=== PATIENT | female | born 1990 | race Caucasian/White ===

== ENCOUNTER 2023-04-19 10:08 | Outpatient (OUT) | payer OTHER, SELFPAY ==
--- NOTE | 2023-04-19 10:09 | US_ITS ---
The [address] [address] Patient Name: PARMJIT CANCHOLA MRN: [id number] date: 1990 Sex: F Assigned Patient Location: [facility] Current Patient Location: LAB Accession/Order Number: [id number] Exam Date: 04/19/2023 10:10 Report Date: 04/19/2023 12:12 At the request of: ERIK GARAY Procedure: US OB transvaginal EXAMINATION: US OB transvaginal HISTORY: MISSED MENSES COMPARISON: No relevant comparison available. FINDINGS: GESTATIONAL SAC: Present and normal appearing. YOLK SAC: Present and normal appearing. POLE: Present and normal appearing. CARDIAC: Present. UTERUS: Normal size and appearance. OVARIES: Right: Normal. Left: Not seen. CERVIX: 4.5 cm in length and closed. CUL-DE-SAC: Normal. OTHER: Increased vascularity within right adnexa and superior to the uterus; nonspecific. AGE BY LMP: 13 weeks 5 days TAMI BY LMP: 10/20/2023 AGE BY US CRL: 11 weeks 0 days TAMI BY US CRL: 11/08/2023 US/US OB transvaginal IMPRESSION: 1. Single live intrauterine . Electronically authenticated by: NIMCO BELLE Date: 04/19/2023 12:12
== END 2023-04-19 10:09 | disposition home or self-care (01) ==
LOC: NOMS 10:08
PROVIDERS: Visit Provider Obstetrics & Gynecology
DX: Z34.91 Encounter for supervision of normal pregnancy, unspecified, first trimester (principal); Z3A.13 13 weeks gestation of pregnancy
CPT/HCPCS: 76817

== ENCOUNTER 2023-04-19 11:20 | Outpatient (OUT) | payer OTHER, SELFPAY ==
[2023-04-19 12:09] LABS: Basophils Percent Auto 0.2 % (0.2-2.0); Eosinophils Percent Auto 0.3 % (0.9-7.0); Hematocrit 40.5 % (36.0-48.0); Hemoglobin 13.4 g/dL (12.0-16.0); Immature Granulocytes Abs Auto 0.04 10^3/uL (0.00-0.03); Immature Granulocytes Pct Auto 0.4 % (0.0-0.5); Lymphocytes Absolute Auto 1.6 10^3/uL (1.2-3.8); Lymphocytes Percent Auto 14.6 % (20.5-60.0); Mean Corpuscular HGB Conc 33.1 g/dL (29.9-35.2); Mean Corpuscular Hemoglobin 29.5 pg (26.7-34.0); Mean Platelet Volume 9.3 fL (9.5-13.5); Monocytes Absolute Auto 0.6 10^3/uL (0.3-0.8); Monocytes Percent Auto 5.4 % (1.7-12.0); Neutrophils Absolute Auto 8.4 10^3/uL (1.4-6.5); Neutrophils Percent Auto 79.1 % (43.0-75.0); Platelet Count 328 10^3/uL (150-450); Red Blood Count 4.55 10^6/uL (4.20-5.40); Red Cell Distribution Width 14.5 % (11.0-15.0); White Blood Count 10.6 10^3/uL (4.0-11.0)
[2023-04-19 12:52] LABS: Estimated Average Glucose 103 mg/dL; Glycohemoglobin A1C 5.2 % (4.5-6.2)
[2023-04-20 04:10] LABS: Rubella Antibodies, IgG <0.90 index (Immune >0.99)
[2023-04-20 06:09] LABS: HBsAg Screen Negative (Negative); HCV Ab Non Reactive (Non Reactive); HIV Ab/p24 Ag Screen Non Reactive (Non Reactive)
[2023-04-20 11:18] LABS: Rapid Plasma Reagin, Quant Non Reactive titer (NonRea<1:1)
== END 2023-04-19 11:21 | disposition home or self-care (01) ==
LOC: LAB 11:23
PROVIDERS: Visit Provider Obstetrics & Gynecology
DX: Z34.91 Encounter for supervision of normal pregnancy, unspecified, first trimester (principal); Z3A.13 13 weeks gestation of pregnancy
CPT/HCPCS: 36415; 76817; 83036; 85025; 86592; 86762; 86803; 86850; 86900; 86901; 87086; 87340; 87389

== ENCOUNTER 2023-05-06 11:35 | Outpatient (OUT) | payer OTHER, SELFPAY ==
--- OUTSIDE RECORDS SUMMARY | 2023-05-06 11:44 | XMS_ITS | CCD ---
Author Name Unknown Address [facility] [address] [place] [address] Organization [facility] Care Team Providers Care Title Abstractor Name Role Phone TANISHA EIRK Unavailable Unavailable TANISHA ERIK Unavailable Unavailable JENNA ANDERSON Unavailable Unavailable CLAYTON DAVID V Unavailable Unavailable JAMIE JAIN Unavailable Unavailable ERIK GARAY Unavailable Unavailable JAMIE JAIN Unavailable Unavailable Problems Active Problems Problem Classification Problem Date Documented Da te Episodic/Chronic Other complications of ; puerperium affecting management of mother (1 source) Anemia complicating childbirth; Translations: [ANEMIA COMPLICATING CHILDBIRTH] Onset: 09-03-2016 Chronic Unclassified (1 source) 39 weeks gestation of ; Translations: [39 WEEKS GESTATION OF ] Onset: 09-03-2016 Past or Other Problems Problem Classification Problem Date Documented Da te Episodic/Chronic Normal and/or delivery (3 sources) Encounter for supervision of other normal , third trimester; Translations: [Single live ] Onset: 08-14-2016 Episodic Other complications of (1 source) Mild hyperemesis gravidarum; Translations: [MILD HYPEREMESIS GRAVIDARUM] Onset: 09-03-2016 Episodic Other connective tissue disease (1 source) Pain in right lower leg; Translations: [PAIN IN RIGHT LOWER LEG] Onset: 09-03-2016 Episodic Polyhydramnios and other problems of amniotic cavity (1 source) Full-term premature rupture of membranes, onset of labor within 24 hours of rupture; Translations: [FT PROM ONSET LABR W/I 24 HR RUPT] Onset: 09-03-2016 Episodic Encounters Encounter Date Encounter Type Care Provider Facility Start: 04-19-2023 End: 04-19-2023 ambulatory Not Available Start: 08-14-2016 End: 08-17-2016 Evaluation and management of inpatient ERIK Zaragoza acility:H1 Procedures Date Procedure Procedure Detail Performing Clinician Start: 08-15-2016 Delivery of Products of Conception, External Approach ERIK GARAY Start: 08-15-2016 Introduction of Othe r Therapeutic Substance into Female Reproductive, Via Natural or Artificial Opening ERIK GARAY Payers Date Payer Category Payer Unknown [id number] 1990 Unknown [id number] 2.16.84 [id number] 1957 Unknown [id number] Summary Purpose Family History No Family History Records FoundNo Family History Records Found Advance Directives No Advanced Directives Records FoundNo Advanced Directives Records Found Additional Source Comments INFORMATION SOURCE (unrecogn ized section and content) DATE CREATED AUTHOR 08/21/2017 [facility] DATE CREATED AUTHOR 'S TERRIIZ ATFARIDA 04/27/2023 [facility] dical Specialists EPIC FOR RECORDS PERTAINING TO PATIENTS WHO ARE OR HAVE BEEN ENROLLED IN A CHEMICAL DEPENDENCY/SUBSTANCEABUSE PROGRAM, SOME INFORMATION MAY BE OMITTED. This clinical summary was aggregated from multiple sources. Caution should be exercised in using it in the provision of clinical care. This summary normalizes information from multiple sources, and as a consequence, information in this document may materially change the coding, format and clinical context of patient data. In addition, data may be omitted in some cases. CLINICAL DECISIONS SHOULD BE BASED ON THE PRIMARY CLINICAL RECORDS. [employer] provides no warranty or guarantee of the accuracy or completeness of information in this document.
[2023-05-06 11:58] LABS: Basophils Percent Auto 0.3 % (0.2-2.0); Eosinophils Percent Auto 0.3 % (0.9-7.0); Hematocrit 41.5 % (36.0-48.0); Hemoglobin 13.8 g/dL (12.0-16.0); Immature Granulocytes Abs Auto 0.04 10^3/uL (0.00-0.03); Immature Granulocytes Pct Auto 0.4 % (0.0-0.5); Lymphocytes Absolute Auto 1.9 10^3/uL (1.2-3.8); Lymphocytes Percent Auto 17.2 % (20.5-60.0); Mean Corpuscular HGB Conc 33.3 g/dL (29.9-35.2); Mean Corpuscular Hemoglobin 29.9 pg (26.7-34.0); Mean Corpuscular Volume 89.8 fL (81.0-99.0); Mean Platelet Volume 9.2 fL (9.5-13.5); Monocytes Absolute Auto 0.8 10^3/uL (0.3-0.8); Monocytes Percent Auto 7.3 % (1.7-12.0); Neutrophils Absolute Auto 8.3 10^3/uL (1.4-6.5); Neutrophils Percent Auto 74.5 % (43.0-75.0); Platelet Count 328 10^3/uL (150-450); Red Blood Count 4.62 10^6/uL (4.20-5.40); Red Cell Distribution Width 14.6 % (11.0-15.0); White Blood Count 11.1 10^3/uL (4.0-11.0)
[2023-05-06 12:04] VITALS: BP 108/75; PULSE 71; RESP 16; TEMP 36.8; O2SAT 96
[2023-05-06 12:15] LABS: Alanine Aminotransferase 80 U/L (14-59); Albumin Globulin Ratio 0.6; Alkaline Phosphatase 75 U/L (46-116); Anion Gap 14.1; Aspartate Amino Transferase 35 U/L (15-37); BUN Creatinine Ratio 10.5; Bilirubin Total 0.5 mg/dL (0.2-1.0); Carbon Dioxide 23.7 mmol/L (21.0-32.0); Chloride 102 mmol/L (98-107); Estimated GFR (African America >60 (>=60); Estimated GFR (Non-African Ame >60 (>=60); Globulin 5.1 g/dL; Glucose 90 mg/dL (74-106); Potassium 3.8 mmol/L (3.5-5.1); Sodium 136 mmol/L (136-145); Total Protein 8.1 g/dL (6.4-8.2)
[2023-05-06 12:22] LABS: Bilirubin Direct 0.1 mg/dL (0.0-0.2); Thyroid Stimulating Hormone 1.364 uIU/mL (0.358-3.740)
[2023-05-06] MEDS: 0.9 % SODIUM CHLORIDE 1,000 ML 999 ML IV (12:27)
[2023-05-06 12:29] LABS: Free T4 0.93 ng/dL (0.76-1.46)
[2023-05-06] MEDS: MULTIVIT INFUSN,ADULT 4,VIT K 10 ML in 0.9 % SODIUM CHLORIDE 1,000 ML 999 ML IV (13:26)
== END 2023-05-06 19:06 | disposition home or self-care (01) ==
LOC: LAB 11:39 → MS 11:45 → LAB 19:10
PROVIDERS: Visit Provider Obstetrics & Gynecology
DX: R11.10 Vomiting, unspecified (principal)
CPT/HCPCS: 36415; 80048; 80076; 84439; 84443; 85025

== ENCOUNTER 2023-05-28 19:57 | Outpatient (REF) | payer OTHER, SELFPAY ==
--- OUTSIDE RECORDS SUMMARY | 2023-05-28 20:00 | XMS_ITS | CCD ---
Author Organization [facility] Care Team Providers Care Application Support Name Role Phone TANISHA, ERIK Unavailable Unavailable TANISHA, ERIK Unavailable Unavailable JENNA ANDERSON Unavailable Unavailable CLAYTON DAVID V Unavailable Unavailable JAMIE JAIN Unavailable Unavailable TANISHA, ERIK Unavailable Unavailable JAMIE JAIN Unavailable Unavailable TANISHA, ERIK Attending Unavailable Problems Active Problems Problem Classification Problem [...] Date Encounter Type Care Provider Facility Start: 05-06-2023 End: 05-06-2023 ambulatory ERIK TANISHA Not Available Start: 04-19-2023 End: 04-19-2023 ambulatory ERIK TANISHA Not Available Start: 08-14-2016 End: 08-17-2016 Evaluation and management of inpatient ERIK TANISHA F acility:H1 Procedures Date Procedure Procedure Detail Performing Clinician Start: 08-15-2016 Delivery of Products of Conception, External Approach ERIK GARAY Start: 08-15-2016 Introduction of Othe r Therapeutic Substance into Female Reproductive, Via Natural or Artificial Opening ERIK GARAY Payers Date Payer Category Payer Unknown [id number] 1990 Unknown [id number] 2.16.84 [id number] 1990 Unknown [id number] 2.16.84 [id number] 1959 Unknown [id number] Summary Purpose Family History No Family History Records FoundNo Family History Records Found Advance Directives No Advanced Directives Records FoundNo Advanced Directives Records Found Additional Source Comments INFORMATION SOURCE (unrecogn ized section and content) DATE CREATED AUTHOR 08/21/2017 [facility] DATE CREATED AUTHOR AUTHOR'S ORGANIZ ATION 05/06/2023 [facility] dicsd Specialists EPIC FOR RECORDS PERTAINING TO PATIENTS [...] BE BASED ON THE PRIMARY CLINICAL RECORDS. [facility] [employer] provides no warranty or guarantee of the accuracy or completeness of information in this document.
[2023-06-01 15:08] LABS: Age Gdln ACOG Testing Note (.); HPV Aptima Negative (Negative); IGP, Aptima HPV, rfx 16/18,45 Note (.)
== END 2023-05-28 19:58 | disposition home or self-care (01) ==
LOC: LAB 19:57
PROVIDERS: Visit Provider Obstetrics & Gynecology
DX: Z01.419 Encounter for gynecological examination (general) (routine) without abnormal findings (principal)
CPT/HCPCS: 87624; G0145

== ENCOUNTER 2023-06-21 12:28 | Outpatient (OUT) | payer OTHER, SELFPAY ==
[2023-06-24 13:07] LABS: AFP Value 67.3 ng/mL (.); Gestat. Age Based On Ultrasound (.); Insulin Dep Diabetes No (.); Maternal Age At EDD 31.6 yr (.); OSBR Risk 1 IN 2591 (.); Results Report (.)
== END 2023-06-21 12:29 | disposition home or self-care (01) ==
LOC: LAB 12:29
PROVIDERS: Visit Provider Obstetrics & Gynecology
DX: Z34.92 Encounter for supervision of normal pregnancy, unspecified, second trimester (principal)
CPT/HCPCS: 36415; 82105

== ENCOUNTER 2023-06-28 17:07 | Outpatient (OUT) | payer OTHER, SELFPAY ==
--- OUTSIDE RECORDS SUMMARY | 2023-06-28 17:11 | XMS_ITS | CCD ---
Author Organization [facility] Care Team Providers Care Health Concierge Name Role Phone CJ GARAYY Unavailable Unavailable TANISHA, ERIK Unavailable Unavailable JENNA ANDERSON Unavailable Unavailable CLAYTON DAVID V Unavailable Unavailable JAMIE JAIN Unavailable Unavailable TANISHA, ERIK Unavailable Unavailable JAMIE JAIN Unavailable Unavailable TANISHA, ERIK Attending Unavailable CJ GARAYY Attending Unavailable ISRAEL MARTINEZ Attending Unavailable Problems Active Problems Problem Classification [...] Date Encounter Type Care Provider Facility Start: 06-26-2023 End: 06-26-2023 ambulatory ISRAEL MARTINEZ Not Available Start: 05-28-2023 End: 05-28-2023 ambulatory ERIK TANISHA Not Available Start: 05-06-2023 End: 05-06-2023 ambulatory ERIK TANISHA Not Available Start: 04-19-2023 End: 04-19-2023 ambulatory ERIK TANISHA Not Available Start: 08-14-2016 End: 08-17-2016 Evaluation and management of inpatient ERIKRaimundo GOLDENO F acility:H1 Procedures Date Procedure Procedure Detail Performing Clinician Start: 08-15-2016 Delivery of Products of Conception, External Approach ERIK TANISHA Start: 08-15-2016 Introduction of Othe r Therapeutic Substance into Female Reproductive, Via Natural or Artificial Opening ERIK TANISHA Payers Date Payer Category Payer Unknown [id number] 1990 Unknown [id number] 2.16.84 [id number] 1990 Unknown [id number] 2.16.84 [id number] 1990 Unknown [id number] 2.16.84 [id number] 1990 Unknown [id number] 2.16.84 [id number] 1959 Unknown [id number] Summary Purpose Family History No Family History Records FoundNo Family History Records Found Advance Directives No Advanced Directives Records FoundNo Advanced Directives Records Found Additional Source Comments INFORMATION SOURCE (unrecogn ized section and content) DATE CREATED AUTHOR 08/21/2017 [facility] DATE CREATED AUTHOR AUTHOR'S ORGANIZ ATFARIDA 06/28/2023 [facility] dicwi Specialists [facility] FOR RECORDS PERTAINING TO PATIENTS WHO ARE [...] BE BASED ON THE PRIMARY CLINICAL RECORDS. [facility] [employer] provides no warranty or guarantee of the accuracy or completeness of information in this document.
--- NOTE | 2023-06-28 17:21 | US_ITS ---
[address] [address] Patient Name: PARMJIT CANCHOLA MRN: [facility]:[id number] date: 1990 Sex: F Assigned Patient Location: US Current Patient Location: LAB Accession/Order Number: [id number] Exam Date: 06/28/2023 17:28 Report Date: 07/01/2023 07:43 At the request of: ERIK GARAY Procedure: US OB anatomy EXAMINATION: US OB cervical length, US OB anatomy HISTORY: SCREENING, FOR ANATOMIC SURVEY Z36.89 COMPARISON: No relevant comparison available. TECHNIQUE: Transabdominal sonographic examination was performed for obstetrical and evaluation. FINDINGS: Number: 1 Heart Rate: 147.5 bpm H.B. /min Amniotic Fluid Volume: Subjectively normal position: Breech presentation, variable lie Placental Location: Posterior. The placental edge is 1.8 cm from the internal os. Grade 0. Cervix Length: 4.8 cm, closed. Incidental nabothian cysts Normal anatomy: Lateral, cerebellum, posterior fossa, orbits, four-chamber heart, RVOT, LVOT, diaphragm, stomach, kidneys, abdominal cord insertion, bladder, umbilical arteries, three-vessel cord, spine, extremities Suboptimal visualization: Nose, lips. BIOMETRY: BPD: 4.8 cm 20 weeks 3 days , 24% HC: 17.9 cm 20 weeks 2 days, 16% AC: 15.0 cm 20 weeks 2 days, 22% FL: 3.3 cm 20 weeks 3 days, 24% EFW:349.6 grams; 12 ounces, 17% FL/AC: 22.2 FL/BPD: 70.3 HC/AC: 1.2 GESTATIONAL AGE: Age by EDC: 21 weeks 0 days Age by current US: 20 weeks 3 days TAMI by current US: 11/12/2023 TAMI by EDC: 11/08/2023 US/US OB anatomy IMPRESSION: Suboptimal visualization of the nose and lips Low lying placenta *Reference: AIUM Practice Guideline for the performance of Obstetric Ultrasound Examinations, November 25, 2006. Electronically authenticated by: CLAYTON DAVID Date: 07/01/2023 07:43
--- NOTE | 2023-06-28 17:21 | US_ITS ---
[address] [address] Patient Name: PARMJIT CANCHOLA MRN: [facility]:[id number] date: 1990 Sex: F Assigned Patient Location: US Current Patient Location: LAB Accession/Order Number: [id number] Exam Date: 06/28/2023 17:28 Report Date: 07/01/2023 07:43 At the request of: ERIK GARAY Procedure: US OB cervical length EXAMINATION: US OB cervical length, US OB anatomy HISTORY: SCREENING, FOR ANATOMIC SURVEY Z36.89 COMPARISON: No relevant comparison available. TECHNIQUE: Transabdominal sonographic examination was performed for obstetrical and evaluation. FINDINGS: Number: 1 Heart Rate: 147.5 bpm H.B. /min Amniotic Fluid Volume: Subjectively normal position: Breech presentation, variable lie Placental Location: Posterior. The placental edge is 1.8 cm from the internal os. Grade 0. Cervix Length: 4.8 cm, closed. Incidental nabothian cysts Normal anatomy: Lateral, cerebellum, posterior fossa, orbits, four-chamber heart, RVOT, LVOT, diaphragm, stomach, kidneys, abdominal cord insertion, bladder, umbilical arteries, three-vessel cord, spine, extremities Suboptimal visualization: Nose, lips. BIOMETRY: BPD: 4.8 cm 20 weeks 3 days , 24% HC: 17.9 cm 20 weeks 2 days, 16% AC: 15.0 cm 20 weeks 2 days, 22% FL: 3.3 cm 20 weeks 3 days, 24% EFW:349.6 grams; 12 ounces, 17% FL/AC: 22.2 FL/BPD: 70.3 HC/AC: 1.2 GESTATIONAL AGE: Age by EDC: 21 weeks 0 days Age by current US: 20 weeks 3 days TAMI by current US: 11/12/2023 TAMI by EDC: 11/08/2023 US/US OB cervical length IMPRESSION: Suboptimal visualization of the nose and lips Low lying placenta *Reference: AIUM Practice Guideline for the performance of Obstetric Ultrasound Examinations, November 25, 2006. Electronically authenticated by: CLAYTON DAVID Date: 07/01/2023 07:43
== END 2023-06-28 17:08 | disposition home or self-care (01) ==
PROVIDERS: Visit Provider Obstetrics & Gynecology
DX: Z36.89 Encounter for other specified antenatal screening (principal); Z3A.20 20 weeks gestation of pregnancy; O44.42 Low lying placenta NOS or without hemorrhage, second trimester
CPT/HCPCS: 76805; 76817

== ENCOUNTER 2023-08-02 15:48 | Outpatient (OUT) | payer OTHER, SELFPAY ==
--- NOTE | 2023-08-02 | US_ITS ---
The [address] [address] Patient Name: PARMJIT CANCHOLA MRN: [facility]:[id number] date: 1990 Sex: F Assigned Patient Location: US Current Patient Location: Accession/Order Number: [id number] Exam Date: 08/02/2023 16:30 Report Date: 08/03/2023 05:36 At the request of: ERIK GARAY Procedure: US OB incomplete anatomy EXAM: US OB incomplete anatomy HISTORY: Encounter for follow up ultrasound of anatomy, Z36.2 COMPARISON: Ultrasound OB anatomy 06/28/2023 TECHNIQUE: Transabdominal ultrasound. FINDINGS: Presentation: Cephalic Heart rate: 144 bpm Anatomy: Hard palate visualized without appreciable abnormality. GA: 26 weeks 0 days TAMI: 11/08/2023 US/US OB incomplete anatomy IMPRESSION: 1. Single live intrauterine . 2. No appreciable abnormality of the hard palate. Electronically authenticated by: NIMCO BELLE Date: 08/03/2023 05:36
--- OUTSIDE RECORDS SUMMARY | 2023-08-02 16:12 | XMS_ITS | CCD ---
Author Organization [facility] Care Team Providers Care Personnel Technician Name Role Phone ERIK GARAY Unavailable Unavailable TANISHA, ERIK Unavailable Unavailable JENNA ANDERSON Unavailable Unavailable CLAYTON DAVID V Unavailable Unavailable JAMIE JAIN Unavailable Unavailable TANISHA, ERIK Unavailable Unavailable JAMIE JAIN Unavailable Unavailable TANISHA, ERIK Attending Unavailable TANISHA, ERIK Attending Unavailable ISRAEL MARTINEZ Attending Unavailable TANISHA, ERIK Attending Unavailable Problems Active [...] Date Encounter Type Care Provider Facility Start: 07-24-2023 End: 07-24-2023 ambulatory ERIK GARAY Not Available Start: 06-26-2023 End: 06-26-2023 ambulatory ISRAEL MARTINEZ [...] TANISHA Payers Date Payer Category Payer Unknown [id number] 1990 Unknown [id number] 2.16.84 [id number] 1990 Unknown [id number] 2.16.84 [id number] 1990 Unknown [id number] 2.16.84 0.1.986543.3.579.2.9 1990 Unknown [id number] 2.16.84 0.1.803352.3.579.2.1258 1992 Unknown [id number] 2.16.84 [id number] 1957 Unknown [id number] Summary Purpose Family History No Family History Records FoundNo Family History Records Found Advance Directives No Advanced Directives Records FoundNo Advanced Directives Records Found Additional Source Comments INFORMATION SOURCE (unrecogn ized section and content) DATE CREATED AUTHOR 08/21/2017 [facility] DATE CREATED AUTHOR AUTHOR'S ORGANIZ ATION 07/25/2023 [facility] dical Specialists EPIC FOR RECORDS PERTAINING [...] BE BASED ON THE PRIMARY CLINICAL RECORDS. [facility] [employer] [facility]. provides no warranty or guarantee of the accuracy or completeness of information in this document.
== END 2023-08-02 15:49 | disposition home or self-care (01) ==
LOC: US 15:49
PROVIDERS: Visit Provider Obstetrics & Gynecology
DX: O44.40 Low lying placenta NOS or without hemorrhage, unspecified trimester (principal); Z3A.26 26 weeks gestation of pregnancy
CPT/HCPCS: 76815

== ENCOUNTER 2023-08-14 13:07 | Outpatient (OUT) | payer OTHER, SELFPAY ==
--- OUTSIDE RECORDS SUMMARY | 2023-08-14 13:25 | XMS_ITS | CCD ---
Author Organization [facility] Care Team Providers Care Supervisor Estimator And Drafter Name Role Phone ERIK GARAY Unavailable Unavailable [...] TANISHA Payers Date Payer Category Payer Unknown [id number] 1990 Unknown [id number] 2.16.84 [id number] 1990 Unknown [id number] 2.16.84 [id number] 1990 Unknown [id number] 2.16.84 0.1.777701.3.579.2.9 1990 Unknown [id number] 2.16.84 0.1.638043.3.579.2.1258 1992 Unknown [id number] 2.16.84 [id number] 1959 Unknown [id number] Summary Purpose Family History No Family History Records FoundNo Family History Records Found Advance Directives No Advanced Directives Records FoundNo Advanced Directives Records Found Additional Source Comments INFORMATION SOURCE (unrecogn ized section and content) DATE CREATED AUTHOR 08/21/2017 [facility] DATE CREATED AUTHOR AUTHOR'S ORGANIZ ATION 07/25/[address] [facility] dical Specialists EPIC FOR RECORDS PERTAINING TO [...] RECORDS. [facility] [employer] [facility]. provides no warranty or guarantee of the accuracy or completeness of information in this document.
[2023-08-14 15:09] LABS: Basophils Percent Auto 0.1 % (0.2-2.0); Eosinophils Absolute Auto 0.1 10^3/uL (0.0-0.7); Eosinophils Percent Auto 0.6 % (0.9-7.0); Hematocrit 31.8 % (36.0-48.0); Hemoglobin 10.2 g/dL (12.0-16.0); Immature Granulocytes Abs Auto 0.05 10^3/uL (0.00-0.03); Immature Granulocytes Pct Auto 0.6 % (0.0-0.5); Lymphocytes Absolute Auto 1.7 10^3/uL (1.2-3.8); Lymphocytes Percent Auto 19.5 % (20.5-60.0); Mean Corpuscular HGB Conc 32.1 g/dL (29.9-35.2); Mean Corpuscular Hemoglobin 29.4 pg (26.7-34.0); Mean Corpuscular Volume 91.6 fL (81.0-99.0); Mean Platelet Volume 9.3 fL (9.5-13.5); Monocytes Absolute Auto 0.4 10^3/uL (0.3-0.8); Monocytes Percent Auto 4.8 % (1.7-12.0); Neutrophils Absolute Auto 6.6 10^3/uL (1.4-6.5); Neutrophils Percent Auto 74.4 % (43.0-75.0); Platelet Count 340 10^3/uL (150-450); Red Blood Count 3.47 10^6/uL (4.20-5.40); Red Cell Distribution Width 13.4 % (11.0-15.0); White Blood Count 8.9 10^3/uL (4.0-11.0)
[2023-08-14 16:02] LABS: Glucose 1 Hour 154 mg/dL (<130)
== END 2023-08-14 13:08 | disposition home or self-care (01) ==
LOC: LAB 13:08
PROVIDERS: Visit Provider Obstetrics & Gynecology
DX: Z13.1 Encounter for screening for diabetes mellitus (principal)
CPT/HCPCS: 36415; 82950; 85025

== ENCOUNTER 2023-09-03 13:05 | Outpatient (OUT) | payer OTHER, SELFPAY ==
[2023-09-03 13:40] LABS: Glucose Fasting 89 mg/dL (<95)
[2023-09-03 15:05] LABS: Glucose 1 Hour 163 mg/dL (<180)
[2023-09-03 15:44] LABS: Glucose 2 Hour 126 mg/dL (<155)
[2023-09-03 16:51] LABS: Glucose 3 Hour 108 mg/dL (<140)
== END 2023-09-03 13:06 | disposition home or self-care (01) ==
LOC: LAB 13:05
PROVIDERS: Visit Provider Obstetrics & Gynecology
DX: R73.09 Other abnormal glucose (principal)
CPT/HCPCS: 36415; 82951; 82952

== ENCOUNTER 2023-09-11 14:40 | Outpatient (OUT) | payer OTHER, SELFPAY ==
--- NOTE | 2023-09-11 14:44 | US_ITS ---
The [address] [address] Patient Name: PARMJIT CANCHOLA MRN: [facility]:[id number] date: 1990 Sex: F Assigned Patient Location: US Current Patient Location: US Accession/Order Number: [id number] Exam Date: 09/11/2023 14:50 Report Date: 09/11/2023 15:59 At the request of: ERIK GARAY Procedure: US OB growth EXAMINATION: US OB growth HISTORY: Size Inconsistent With Dates O26.843 COMPARISON: No relevant comparison available. FINDINGS: Heart Rate: 143.62 bpm Amniotic Fluid Volume: 14.9 cm; normal range. Number: 1 Position: CEPHALIC BIOMETRY: BPD: 7.87 cm; 31 weeks 4 days; 36 % HC: 29.01 cm; 32 weeks 0 days; 19.60 % AC: 27.25 cm; 31 weeks 2 days; 36.20 % FL: 5.94 cm; 31 weeks 0 days; 17.90 % EFW: 1737.89 g; 25.80 % FL/AC: 21.79 FL/BPD: 75.44 HC/AC: 1.06 GESTATIONAL AGE: Age by EDC: 31 weeks 5 days TAMI by EDC: 2023-11-08 Age by US: 31 weeks 3 days TAMI by US: 2023-11-10 US/US OB growth IMPRESSION: 1. Single live intrauterine with growth detailed above. 2. Lower margin of the posterior placenta is suspected to still be low-lying and near the internal os. Electronically authenticated by: NIMCO BELLE Date: 09/11/2023 15:59
--- OUTSIDE RECORDS SUMMARY | 2023-09-11 14:45 | XMS_ITS | CCD ---
Author Organization [facility] Care Team Providers Care Apparel Embroidery Digitizer Name Role Phone TANISHA ERIK Unavailable Unavailable TANISHA, ERIK Unavailable Unavailable JENNA ANDERSON Unavailable Unavailable CLAYTON DAVID V Unavailable Unavailable JAMIE JAIN Unavailable Unavailable TANISHA, ERIK Unavailable Unavailable JAMIE JAIN Unavailable Unavailable TANISHA, ERIK Attending Unavailable TANISHA, ERIK Attending Unavailable ISRAEL MARTINEZ Attending Unavailable TANISHA, ERIK Attending Unavailable TANISHA, ERIK Attending Unavailable TANISHA, ERIK Attending Unavailable Problems [...] Date Encounter Type Care Provider Facility Start: 09-04-2023 End: 09-04-2023 ambulatory ERIK TANISHA Not Available Start: 08-21-2023 End: 08-21-2023 ambulatory ERIK TANISHA Not Available Start: 07-24-2023 End: 07-24-2023 ambulatory ERIK TANISHA Not Available Start: 06-26-2023 End: 06-26-2023 ambulatory [...] TANISHA Payers Date Payer Category Payer Unknown [id number] 1990 Unknown [id number] 2.16.84 [id number] 1990 Unknown [id number] 2.16.84 [id number] 1992 Unknown [id number] 2.16.84 0.1.932312.3.579.2.1258 1992 Unknown [id number] 2.16.84 0.1.001612.3.579.2.1258 1992 Unknown [id number] 2.16.84 0.1.741078.3.579.2.1258 1992 Unknown [id number] 2.16.84 0.1.521279.3.579.2.1258 1992 Unknown [id number] 2.16.84 0.1.851143.3.579.2.9 1959 Unknown [id number] Summary Purpose Family History No Family History Records FoundNo Family History Records Found Advance Directives No Advanced Directives Records FoundNo Advanced Directives Records Found Additional Source Comments INFORMATION SOURCE (unrecogn ized section and content) DATE CREATED AUTHOR 08/21/2017 [facility] DATE CREATED AUTHOR AUTHOR'S JENNY MCFARLANE 09/11/2023 [facility] dical Specialists [facility] FOR RECORDS PERTAINING TO PATIENTS WHO ARE [...] BE BASED ON THE PRIMARY CLINICAL RECORDS. [facility] [employer] provides no warranty or guarantee of the accuracy or completeness of information in this document.
== END 2023-09-11 14:41 | disposition home or self-care (01) ==
LOC: US 14:40
PROVIDERS: Visit Provider Obstetrics & Gynecology
DX: O26.843 Uterine size-date discrepancy, third trimester (principal); Z3A.31 31 weeks gestation of pregnancy
CPT/HCPCS: 76816

== ENCOUNTER 2023-09-14 09:30 | Outpatient (OUT) | payer OTHER, SELFPAY ==
--- NOTE | 2023-09-14 09:32 | US_ITS ---
[address] [address] Patient Name: PARMJIT CANCHOLA MRN: [facility]:[id number] date: 1990 Sex: F Assigned Patient Location: Current Patient Location: Accession/Order Number: [id number] Exam Date: 09/14/2023 09:37 Report Date: 09/16/2023 07:30 At the request of: ERIK GARAY Procedure: US OB cervical length EXAM: US OB placenta, US OB cervical length HISTORY: LOW LYING PLACENTA O44.40 COMPARISON: 09/11/2023 TECHNIQUE: Transabdominal and transvaginal FINDINGS: position: Cephalic presentation, longitudinal lie Placenta: Posterior, no intraplacental or retroplacental echogenic abnormality. Grade 0. The placental edge is 1.5 cm from the internal cervical os Heart rate: 143 beats minute Cervix: 4.8 cm, closed. US/US OB cervical length IMPRESSION: Marginal placenta previa, the placental edge is 1.5 cm from the internal os Closed cervix measuring 4.8 cm in length Electronically authenticated by: CLAYTON DAVID Date: 09/16/2023 07:30
--- NOTE | 2023-09-14 09:32 | US_ITS ---
[address] [address] Patient Name: PARMJIT CANCHOLA MRN: [facility]:[id number] date: 1990 Sex: F Assigned Patient Location: US Current Patient Location: Accession/Order Number: [id number] Exam Date: 09/14/2023 09:37 Report Date: 09/16/2023 07:30 At the request of: ERIK GARAY Procedure: US OB placenta EXAM: US OB placenta, US OB cervical length HISTORY: LOW LYING PLACENTA O44.40 COMPARISON: 09/11/2023 TECHNIQUE: Transabdominal and transvaginal FINDINGS: position: Cephalic presentation, longitudinal lie Placenta: Posterior, no intraplacental or retroplacental echogenic abnormality. Grade 0. The placental edge is 1.5 cm from the internal cervical os Heart rate: 143 beats minute Cervix: 4.8 cm, closed. US/US OB placenta IMPRESSION: Marginal placenta previa, the placental edge is 1.5 cm from the internal os Closed cervix measuring 4.8 cm in length Electronically authenticated by: CLAYTON DAVID Date: 09/16/2023 07:30
--- OUTSIDE RECORDS SUMMARY | 2023-09-14 09:33 | XMS_ITS | CCD ---
Author Organization [facility] Care Team Providers Care Carbon Sequestration Plant Engineer Name Role Phone TANISHA ERIK Unavailable Unavailable [...] TANISHA Payers Date Payer Category Payer Unknown [id number] 1990 Unknown [id number] 2.16.84 [id number] 1990 Unknown [id number] 2.16.84 0.1.337581.3.579.2.1258 1990 Unknown [id number] 2.16.84 0.1.313966.3.579.2.1258 1992 Unknown [id number] 2.16.84 0.1.636232.3.579.2.1258 1992 Unknown [id number] 2.16.84 0.1.842920.3.579.2.1258 1992 Unknown [id number] 2.16.84 0.1.153514.3.579.2.1258 1992 Unknown [id number] 2.16.84 0.1.599168.3.579.2.9 1959 Unknown [id number] Summary Purpose Family History No Family History Records FoundNo Family History Records Found Advance Directives No Advanced Directives Records FoundNo Advanced Directives Records Found Additional Source Comments INFORMATION SOURCE (unrecogn ized section and content) DATE CREATED AUTHOR 08/21/2017 [facility] DATE CREATED AUTHOR AUTHOR'S JENNY MCFARLANE 09/11/2023 [facility] dical Specialists [facility] FOR RECORDS PERTAINING TO PATIENTS WHO [...] BE BASED ON THE PRIMARY CLINICAL RECORDS. [facility] [employer] provides no warranty or guarantee of the accuracy or completeness of information in this document.
== END 2023-09-14 09:31 | disposition home or self-care (01) ==
LOC: US 09:30
PROVIDERS: Visit Provider Obstetrics & Gynecology
DX: O44.40 Low lying placenta NOS or without hemorrhage, unspecified trimester (principal)
CPT/HCPCS: 76815; 76817

== ENCOUNTER 2023-09-17 13:07 | Observation (INO) | payer OTHER, SELFPAY ==
[2023-09-17 13:24] VITALS: BP 115/59; PULSE 68
[2023-09-17 14:10] LABS: Amnisure NEGATIVE (NEGATIVE); Internal Control Within Normal Limits
[2023-09-17 14:56] LABS: Bilirubin Urine NEGATIVE (NEGATIVE); Blood Urine MODERATE (NEGATIVE); Clarity Urine CLEAR (CLEAR); Color Urine YELLOW (YELLOW); Glucose Urine UA NEGATIVE (NEGATIVE); Ketones Urine NEGATIVE (NEGATIVE); Leukocyte Esterase Urine NEGATIVE (NEGATIVE); Nitrite Urine NEGATIVE (NEGATIVE); Protein Urine NEGATIVE (NEG/TRACE); Specific Gravity Urine 1.025 (1.005-1.025); Urobilinogen Urine 0.2 EU/dL (0.2-1.0)
[2023-09-17 15:01] LABS: Urine Microscopic Indicated YES
[2023-09-17 15:13] LABS: Bacteria Urine MODERATE #/HPF (NONE SEEN); Cast Seen? NONE SEEN #/LPF (NONE SEEN); Crystals Seen? None Seen #/HPF (None Seen); Mucus Urine SMALL (NONE SEEN); Squamous Epithelial Cell Urine FEW #/LPF (NONE/RARE); Urine Culture Indicated YES; WBC Urine 0-2 #/HPF (NONE SEEN)
== END 2023-09-17 14:50 | disposition home or self-care (01) ==
LOC: FBC 13:09
PROVIDERS: Admitting Provider Obstetrics & Gynecology; Visit Provider Obstetrics & Gynecology
DX: Z03.71 Encounter for suspected problem with amniotic cavity and membrane ruled out (principal); Z3A.00 Weeks of gestation of pregnancy not specified
CPT/HCPCS: 59025; 81001; 84112; 87086; G0378; G0379

== ENCOUNTER 2023-09-30 12:10 | Outpatient (OUT) | payer OTHER, SELFPAY ==
--- NOTE | 2023-09-30 | US_ITS ---
The [address] [address] Patient Name: PARMJIT CANCHOLA MRN: [id number] date: 1990 Sex: F Assigned Patient Location: US Current Patient Location: US Accession/Order Number: [id number] Exam Date: 09/30/2023 12:15 Report Date: 09/30/2023 13:40 At the request of: ERIK GARAY Procedure: US OB cervical length EXAMINATION: US OB placenta, US OB cervical length HISTORY: Low Lying Placenta COMPARISON: Ultrasound OB placenta 09/14/2023 FINDINGS: PRESENTATION: Cephalic PLACENTA: Posterior with lower margin approximately 1.6 cm from os. CERVIX LENGTH: 4.9 cm, closed. HEART RATE: 138 bpm OTHER: None. US/US OB cervical length IMPRESSION: 1. Single live intrauterine . 2. Posterior placenta with lower margin difficult to clearly a identified due to cephalic presentation of the baby. Tip is suspected to be 1.6 cm from os (low-lying). Electronically authenticated by: NIMCO BELLE Date: 09/30/2023 13:40
--- NOTE | 2023-09-30 12:15 | US_ITS ---
The [address] [address] Patient Name: PARMJIT CANCHOLA MRN: [id number] date: 1990 Sex: F Assigned Patient Location: US Current Patient Location: US Accession/Order Number: [id number] Exam Date: 09/30/2023 12:20 Report Date: 09/30/2023 13:40 At the request of: ERIK GARAY Procedure: US OB placenta EXAMINATION: US OB placenta, US OB cervical length HISTORY: Low Lying Placenta COMPARISON: Ultrasound OB placenta 09/14/2023 FINDINGS: PRESENTATION: Cephalic PLACENTA: Posterior with lower margin approximately 1.6 cm from os. CERVIX LENGTH: 4.9 cm, closed. HEART RATE: 138 bpm OTHER: None. US/US OB placenta IMPRESSION: 1. Single live intrauterine . 2. Posterior placenta with lower margin difficult to clearly a identified due to cephalic presentation of the baby. Tip is suspected to be 1.6 cm from os (low-lying). Electronically authenticated by: NIMCO BELLE Date: 09/30/2023 13:40
== END 2023-09-30 12:11 | disposition home or self-care (01) ==
LOC: US 12:10
PROVIDERS: Visit Provider Obstetrics & Gynecology
DX: O44.40 Low lying placenta NOS or without hemorrhage, unspecified trimester (principal)
CPT/HCPCS: 76815; 76817

== ENCOUNTER 2023-10-06 13:05 | Emergency (ER) | payer OTHER, SELFPAY ==
[2023-10-06 13:09] VITALS: BP 117/84; PULSE 82; TEMP 36.8; O2SAT 98; BMI 38.6
--- OUTSIDE RECORDS SUMMARY | 2023-10-06 13:13 | XMS_ITS | CCD ---
Author Organization [facility] Care Team Providers Care Lead Furnace Operator Name Role Phone TANISHA, ERIK Unavailable Unavailable TANISHA, ERIK Unavailable Unavailable JENNA ANDERSON Unavailable Unavailable CALYTON DAVID V Unavailable Unavailable JAMIE JAIN Unavailable Unavailable TANISHA, ERIK Unavailable Unavailable JAIN, JAMIE Unavailable Unavailable TANISHA, ERIK Attending Unavailable TANISHA, ERIK Attending Unavailable MICHELLE, ISRAEL Attending Unavailable TANISHA, ERIK Attending Unavailable TANISHA, ERIK Attending Unavailable TANISHA, ERIK Attending Unavailable MICHELLE, ISRAEL Attending Unavailable TANISHA, ERIK Attending Unavailable Problems [...] Date Encounter Type Care Provider Facility Start: 10-02-2023 End: 10-02-2023 ambulatory ERIK TANISHA Not Available Start: 09-19-2023 End: 09-19-2023 ambulatory ISRAEL MARTINEZ Not Available Start: 09-04-2023 End: 09-04-2023 ambulatory ERIK TANISHA [...] TANISHA Payers Date Payer Category Payer Unknown [id number] 1990 Unknown [id number] 2.16.84 0.1.492477.3.579.2.1258 1990 Unknown [id number] 2.16.84 0.1.464333.3.579.2.1258 1992 Unknown [id number] 2.16.84 0.1.839126.3.579.2.1258 1992 Unknown [id number] 2.16.84 0.1.885333.3.579.2.1258 1992 Unknown [id number] 2.16.84 0.1.261783.3.579.2.1258 1992 Unknown [id number] 2.16.84 0.1.132788.3.579.2.1258 1992 Unknown [id number] 2.16.84 0.1.574157.3.579.2.1259 1992 Unknown [id number] 2.16.84 0.1.775100.3.579.2.9 1992 Unknown [id number] 2.16.84 0.1.656411.3.579.2.1259 1959 Unknown [id number] Summary Purpose Family History No Family History Records FoundNo Family History Records Found Advance Directives No Advanced Directives Records FoundNo Advanced Directives Records Found Additional Source Comments INFORMATION SOURCE (unrecogn ized section and content) DATE CREATED AUTHOR 08/21/2017 [facility] DATE CREATED AUTHOR AUTHOR'S JENNY ATFARIDA 10/05/2023 [facility] dicmn Specialists [facility] FOR RECORDS PERTAINING TO PATIENTS WHO [...] BE BASED ON THE PRIMARY CLINICAL RECORDS. [facility] [employer] provides no warranty or guarantee of the accuracy or completeness of information in this document.
--- NOTE | 2023-10-06 13:16 | ED.GENADUL1 ---
HPI HPI - General Adult General Chief complaint: Syncope Stated complaint: DIZZY, HEADACHE FOLLOWING FALL, 35 WKS Time Seen by Provider: 10/06/23 13:12 Source: patient Mode of arrival: walk-in Limitations: no limitations History of Present Illness HPI narrative: 33-year-old female presented to the emergency department for evaluation after passing out. She is 35 weeks and was vomiting in the bathroom. This vomiting is not unusual, she has hyperemesis. She was vomiting and was nauseous and she states she passed out and hit the bridge of her nose. The nose hurts but there was no epistaxis and she does not have neck pain. She did not hit her abdomen. Initially she thought she was not feeling the baby moving around but now she is. No vaginal bleeding. She does not have neck pain or back pain and did not sustain any injury to her extremities. Related Data Home Medications ?Medication ?Instructions ?Recorded ?Confirmed ondansetron 4 mg disintegrating 4 mg PO Q8H PRN nausea and vomiting 10/06/23 10/06/23 tablet polysaccharide iron complex 180 mg 180 mg PO DAILY 10/06/23 10/06/23 iron capsule (Pro Fe) Allergies Allergy/AdvReac Type Severity Reaction Status Date / Time No Known Drug Allergies Allergy Verified 10/06/23 13:16 Opioid HPI Opioid Management Most Recent Opioid Data: Last ED Pain Assessment 10/06/23 13:26 Review of Systems ROS Narrative A ten point review of systems is negative except as noted above. Exam Narrative Exam Narrative: Nurses note and vital signs reviewed and patient is not hypoxic. General: The patient appears well and in no apparent distress. Patient is resting comfortably on cart. Skin: Warm, dry, no pallor noted. There is no rash noted. Head: Normocephalic, atraumatic. No bruising or abrasion to her forehead or elsewhere on the face. The bridge of her nose is not swollen. No epistaxis. Cervical spine nontender. Eye: Normal conjunctiva, no drainage, EOMI. PERRL Ears, Nose, Mouth, and Throat: oral mucosa is moist. Nares patent. Mouth without vesicles. No hemotympanum. Cardiovascular: Regular Rate and Rhythm Respiratory: Patient is in no distress, no accessory muscle use, lungs are clear to auscultation, no wheezing, rales or rhonchi Back: non-tender, including C-spine and T-spine GI: Gravid, soft and nontender. motion is appreciated. Musculoskeletal: No palpable tenderness to her extremities Neurological: A&O x4, normal speech Psychiatric: Cooperative Constitutional Vital Signs, click to edit/add: Last Vital Signs Temp 98.3 F 10/06/23 13:09 Pulse 82 10/06/23 13:09 Resp 20 10/06/23 13:09 BP 117/84 10/06/23 13:09 Pulse Ox 98 10/06/23 13:09 O2 Del Method Room Air 10/06/23 13:09 Course Vital Signs Vital signs: Vital Signs Temperature 98.3 F 10/06/23 13:09 Pulse Rate 82 10/06/23 13:09 Respiratory Rate 20 10/06/23 13:09 Blood Pressure 117/84 10/06/23 13:09 Pulse Oximetry 98 10/06/23 13:09 Oxygen Delivery Method Room Air 10/06/23 13:09 Temperature 98.3 F 10/06/23 13:09 Pulse Rate 82 10/06/23 13:09 Respiratory Rate 20 10/06/23 13:09 Blood Pressure 117/84 10/06/23 13:09 Pulse Oximetry 98 10/06/23 13:09 Oxygen Delivery Method Room Air 10/06/23 13:09 Medical Decision Making [facility] Narrative Medical decision making narrative: The patient's physical exam is normal. Case discussed with Dr. Espinoza and monitoring is not warranted in this case. She is able to be released. I have no suspicion of intracranial hemorrhage or nasal fracture. Treatment diagnosis and follow-up were discussed with the patient. Differential Diagnosis Differential Diagnosis: Contusion, fracture Discharge Plan Discharge Stand Alone Forms: Portal Instructions Chief Complaint: Syncope Clinical Impression: Syncope, Facial contusion Patient Disposition: Home, Self-Care Time of Disposition Decision: 13:36 Condition: Good Mode of Transportation: Private Vehicle Prescriptions / Home Meds: No Action ondansetron 4 mg tablet,disintegrating 4 mg PO Q8H PRN (Reason: nausea and vomiting) Pro Fe 180 mg iron capsule 180 mg PO DAILY Print Language: Honduran Instructions: Syncope (ED), Facial Contusion (ED) Referrals: Physician,Non-Staff, MD [Primary Care Provider] - 1 week
[2023-10-06] MEDS: ONDANSETRON 4 MG RAPDIS TABLET SL (13:40)
[2023-10-06 13:55] VITALS: BP 95/77; PULSE 104; O2SAT 98
== END 2023-10-06 13:59 | disposition home or self-care (01) ==
PROVIDERS: Emergency Provider Emergency Medicine
DX: O9A.213 Injury, poisoning and certain other consequences of external causes complicating pregnancy, third trimester (principal); S00.83XA Contusion of other part of head, initial encounter; W22.8XXA Striking against or struck by other objects, initial encounter; O26.893 Other specified pregnancy related conditions, third trimester; R55 Syncope and collapse; Z3A.35 35 weeks gestation of pregnancy
CPT/HCPCS: 99283; Q0162

== ENCOUNTER 2023-10-09 07:01 | Outpatient (OUT) | payer OTHER, SELFPAY ==
--- OUTSIDE RECORDS SUMMARY | 2023-10-09 07:03 | XMS_ITS | CCD ---
Author Organization [facility] Care Team Providers Care Safety Officer Name Role Phone TANISHA, ERIK Unavailable Unavailable [...] TANISHA Payers Date Payer Category Payer Unknown [id number] 1990 Unknown [id number] 2.16.84 0.1.300871.3.579.2.1258 1990 Unknown [id number] 2.16.84 0.1.904819.3.579.2.1258 1992 Unknown [id number] 2.16.84 0.1.494503.3.579.2.1258 1992 Unknown [id number] 2.16.84 0.1.104666.3.579.2.1258 1992 Unknown [id number] 2.16.84 0.1.486011.3.579.2.1258 1992 Unknown [id number] 2.16.84 0.1.868112.3.579.2.1258 1992 Unknown [id number] 2.16.84 0.1.984687.3.579.2.1259 1992 Unknown [id number] 2.16.84 0.1.183154.3.579.2.9 1992 Unknown [id number] 2.16.84 0.1.907526.3.579.2.1259 1959 Unknown [id number] Summary Purpose Family History No Family History Records FoundNo Family History Records Found Advance Directives No Advanced Directives Records FoundNo Advanced Directives Records Found Additional Source Comments INFORMATION SOURCE (unrecogn ized section and content) DATE CREATED AUTHOR 08/21/2017 [facility] DATE CREATED AUTHOR AUTHOR'S JENNY ATFARIDA 10/05/[address] [facility] dicoh Specialists [facility] FOR RECORDS PERTAINING TO PATIENTS WHO [...] BE BASED ON THE PRIMARY CLINICAL RECORDS. [facility] [employer] provides no warranty or guarantee of the accuracy or completeness of information in this document.
[2023-10-09 15:16] VITALS: BP 108/78; PULSE 96
--- NOTE | 2023-10-09 15:18 | US_ITS ---
[address] [address] Patient Name: PARMJIT CANCHOLA MRN: [facility]:[id number] date: 1990 Sex: F Assigned Patient Location: US Current Patient Location: US Accession/Order Number: [id number] Exam Date: 10/09/2023 15:40 Report Date: 10/09/2023 16:57 At the request of: ERIK GARAY Procedure: US OB BPP w non-stress EXAMINATION: US OB BPP w non-stress HISTORY: NAUSEA R11.0, WEIGHT LOSS R63.4 COMPARISON: No relevant comparison available. TECHNIQUE: Ultrasound biophysical profile was performed in the radiology department. non-reactive stress testing was performed by nursing staff in the birthing center. FINDINGS: BREATHING MOVEMENTS: 2 GROSS BODY MOVEMENTS: 2 TONE: 2 QUALITATIVE AMNIOTIC FLUID VOLUME: 2 PRESENTATION: CEPHALIC HEART RATE: 143.62 bpm AMNIOTIC FLUID VOLUME: 18.7 cm GESTATIONAL AGE: 35 weeks 5 days US/US OB BPP w non-stress IMPRESSION: Total biophysical profile score: 8 Electronically authenticated by: CLAYTON DAVID Date: 10/09/2023 16:57
== END 2023-10-09 16:04 | disposition home or self-care (01) ==
LOC: US 07:04 → FBC 15:08
PROVIDERS: Visit Provider Obstetrics & Gynecology
DX: R11.0 Nausea (principal); R63.4 Abnormal weight loss; Z3A.35 35 weeks gestation of pregnancy
CPT/HCPCS: 76818

== ENCOUNTER 2023-10-12 07:44 | Outpatient (OUT) | payer OTHER, SELFPAY ==
--- OUTSIDE RECORDS SUMMARY | 2023-10-12 07:45 | XMS_ITS | CCD ---
Author Organization [facility] Care Team Providers Care Bakery Chef Name Role Phone TANISHA, ERIK Unavailable Unavailable TANISHA, ERIK Unavailable Unavailable JENNA ANDERSON Unavailable Unavailable CLAYTON DAVID V Unavailable Unavailable SUSY, JAMIE Unavailable Unavailable TANISHA, ERIK Unavailable Unavailable JAIN, [...] Date Encounter Type Care Provider Facility Start: 10-08-2023 End: 10-08-2023 ambulatory ERIK TANISHA Not Available Start: 10-02-2023 End: 10-02-2023 ambulatory ERIK TANISHA [...] TANISHA Payers Date Payer Category Payer Unknown [id number] 1990 Unknown [id number] 2.16.84 0.1.865807.3.579.2.1258 1992 Unknown [id number] 2.16.84 0.1.038002.3.579.2.1258 1992 Unknown [id number] 2.16.84 0.1.379726.3.579.2.1258 1992 Unknown [id number] 2.16.84 0.1.084238.3.579.2.1258 1992 Unknown [id number] 2.16.84 0.1.433707.3.579.2.1258 1992 Unknown [id number] 2.16.84 0.1.515184.3.579.2.1259 1992 Unknown [id number] 2.16.84 0.1.191019.3.579.2.1258 1992 Unknown [id number] 2.16.84 0.1.711069.3.579.2.9 1992 Unknown [id number] 2.16.84 0.1.901124.3.579.2.1258 1992 Unknown [id number] 2.16.84 0.1.556000.3.579.2.1259 1959 Unknown [id number] Summary Purpose Family History No Family History Records FoundNo Family History Records Found Advance Directives No Advanced Directives Records FoundNo Advanced Directives Records Found Additional Source Comments INFORMATION SOURCE (unrecogn ized section and content) DATE CREATED AUTHOR 08/21/2017 [facility] DATE CREATED AUTHOR AUTHOR'S JENNY MCFARLANE 10/09/2023 [facility] Specialists [facility] FOR RECORDS PERTAINING TO PATIENTS WHO [...] BE BASED ON THE PRIMARY CLINICAL RECORDS. [facility] [employer] provides no warranty or guarantee of the accuracy or completeness of information in this document.
[2023-10-12 08:17] VITALS: BP 107/62; PULSE 100; TEMP 36
== END 2023-10-12 08:44 | disposition home or self-care (01) ==
LOC: FBCO 07:44 → FBC 08:11
PROVIDERS: Visit Provider Obstetrics & Gynecology
DX: O26.893 Other specified pregnancy related conditions, third trimester (principal)
CPT/HCPCS: 59025

== ENCOUNTER 2023-10-15 19:29 | Outpatient (REF) | payer OTHER, SELFPAY ==
--- OUTSIDE RECORDS SUMMARY | 2023-10-15 19:37 | XMS_ITS | CCD ---
Author Organization [facility] Care Team Providers Care Veterans Contact Representative Name Role Phone TANISHA, ERIK Unavailable Unavailable TANISHA, ERIK Unavailable Unavailable JENNA ANDERSON Unavailable Unavailable CLAYTON DAVID V Unavailable Unavailable SUSY, JAMIE Unavailable Unavailable TANISHA, ERIK Unavailable Unavailable JAIN, JAMIE Unavailable Unavailable TNAISHA, ERIK Attending Unavailable TANISHA, ERIK Attending Unavailable [...] TANISHA Payers Date Payer Category Payer Unknown [id number] 1990 Unknown [id number] 2.16.84 0.1.979815.3.579.2.1258 1992 Unknown [id number] 2.16.84 0.1.819301.3.579.2.1258 1992 Unknown [id number] 2.16.84 0.1.853694.3.579.2.1258 1992 Unknown [id number] 2.16.84 0.1.520388.3.579.2.1258 1992 Unknown [id number] 2.16.84 0.1.731063.3.579.2.1258 1992 Unknown [id number] 2.16.84 0.1.166487.3.579.2.1259 1992 Unknown [id number] 2.16.84 0.1.399933.3.579.2.1258 1992 Unknown [id number] 2.16.84 0.1.461719.3.579.2.9 1992 Unknown [id number] 2.16.84 0.1.664265.3.579.2.1258 1992 Unknown [id number] 2.16.84 0.1.529566.3.579.2.1259 1959 Unknown [id number] Summary Purpose Family History No Family History Records FoundNo Family History Records Found Advance Directives No Advanced Directives Records FoundNo Advanced Directives Records Found Additional Source Comments INFORMATION SOURCE (unrecogn ized section and content) DATE CREATED AUTHOR 08/21/2017 [facility] DATE CREATED AUTHOR AUTHOR'S JENNY MCFARLANE 10/09/2023 [facility] Specialists [facility] FOR RECORDS PERTAINING TO PATIENTS WHO [...] BE BASED ON THE PRIMARY CLINICAL RECORDS. [facility] [employer] provides no warranty or guarantee of the accuracy or completeness of information in this document.
== END 2023-10-15 19:30 | disposition home or self-care (01) ==
LOC: LAB 19:29
PROVIDERS: Visit Provider Obstetrics & Gynecology
DX: Z34.93 Encounter for supervision of normal pregnancy, unspecified, third trimester (principal)
CPT/HCPCS: 36415; 87081; 87150

== ENCOUNTER 2023-10-16 06:57 | Outpatient (OUT) | payer OTHER, SELFPAY ==
--- OUTSIDE RECORDS SUMMARY | 2023-10-16 06:59 | XMS_ITS | CCD ---
Author Organization [facility] Care Team Providers Care Winder Fixer Name Role Phone TANISHA, ERIK Unavailable Unavailable [...] TANISHA Payers Date Payer Category Payer Unknown [id number] 1990 Unknown [id number] 2.16.84 0.1.379640.3.579.2.1258 1992 Unknown [id number] 2.16.84 0.1.647911.3.579.2.1258 1992 Unknown [id number] 2.16.84 0.1.987866.3.579.2.1258 1992 Unknown [id number] 2.16.84 0.1.986951.3.579.2.1258 1992 Unknown [id number] 2.16.84 0.1.399677.3.579.2.1258 1992 Unknown [id number] 2.16.84 0.1.275384.3.579.2.1259 1992 Unknown [id number] 2.16.84 0.1.936746.3.579.2.1258 1992 Unknown [id number] 2.16.84 0.1.463482.3.579.2.9 1992 Unknown [id number] 2.16.84 0.1.789616.3.579.2.1258 1992 Unknown [id number] 2.16.84 0.1.755480.3.579.2.1259 1959 Unknown [id number] Summary Purpose Family History No Family History Records FoundNo Family History Records Found Advance Directives No Advanced Directives Records FoundNo Advanced Directives Records Found Additional Source Comments INFORMATION SOURCE (unrecogn ized section and content) DATE CREATED AUTHOR 08/21/2017 [facility] DATE CREATED AUTHOR AUTHOR'S JENNY MCFARLANE 10/09/2023 [facility] Specialists [facility] FOR [...] BE BASED ON THE PRIMARY CLINICAL RECORDS. [facility] [employer] provides no warranty or guarantee of the accuracy or completeness of information in this document.
--- NOTE | 2023-10-16 15:01 | US_ITS ---
[address] [address] Patient Name: PARMIJT CANCHOLA MRN: [facility]:[id number] date: 1990 Sex: F Assigned Patient Location: [facility] Current Patient Location: [facility] Accession/Order Number: [id number] Exam Date: 10/16/2023 15:10 Report Date: 10/16/2023 15:41 At the request of: ERIK GARAY Procedure: US OB BPP w non-stress EXAMINATION: US OB BPP w non-stress HISTORY:NAUSEA R11.0 WEIGHT LOST R63.4 COMPARISON: Ultrasound OB biophysical 10/09/2023 TECHNIQUE: Ultrasound biophysical profile was performed in the radiology department. BREATHING MOVEMENTS: 2 GROSS BODY MOVEMENTS: 2 TONE: 2 QUALITATIVE AMNIOTIC FLUID VOLUME: 2 PRESENTATION: CEPHALIC HEART RATE: 147.54 bpm AMNIOTIC FLUID VOLUME: 13.44 cm GESTATIONAL AGE: 36 weeks 5 days US/US OB BPP w non-stress IMPRESSION: Total biophysical profile score: 8 Electronically authenticated by: NIMCO BELLE Date: 10/16/2023 15:41
[2023-10-16 15:26] VITALS: BP 103/67; PULSE 98
== END 2023-10-16 15:50 | disposition home or self-care (01) ==
LOC: US 06:57 → FBC 14:53
PROVIDERS: Visit Provider Obstetrics & Gynecology
DX: O26.893 Other specified pregnancy related conditions, third trimester (principal); R11.0 Nausea; Z3A.36 36 weeks gestation of pregnancy
CPT/HCPCS: 76818

== ENCOUNTER 2023-10-16 13:39 | Outpatient (OUT) | payer OTHER, SELFPAY ==
--- NOTE | 2023-10-16 | US_ITS ---
The [address] [address] Patient Name: PARMJIT CANCHOLA MRN: [facility]:[id number] date: 1990 Sex: F Assigned Patient Location: [facility] Current Patient Location: [facility] Accession/Order Number: [id number] Exam Date: 10/16/2023 13:41 Report Date: 10/16/2023 14:52 At the request of: ERIK GARAY Procedure: US OB placenta EXAMINATION: US OB placenta, US OB cervical length HISTORY: LOW LYING PLACENTA COMPARISON: Ultrasound OB placenta 09/30/2023 FINDINGS: PLACENTA: Posterior with lower margin approximately 9 cm from internal os. No abruption or subchorionic hematoma. CERVIX LENGTH: 5.0 cm; closed. HEART RATE: 152 bpm OTHER: None. US/US OB placenta IMPRESSION: 1. Posterior placenta which is no longer low-lying. Distal margin is difficult to determine due to position however, it appears to be approximately 9 cm from the internal os. Electronically authenticated by: NIMCO BELLE Date: 10/16/2023 14:52
--- NOTE | 2023-10-16 | US_ITS ---
The [address] [address] Patient Name: PARMJIT CANCHOLA MRN: [facility]:[id number] date: 1990 Sex: F Assigned Patient Location: [facility] Current Patient Location: [facility] Accession/Order Number: [id number] Exam Date: 10/16/2023 13:41 Report Date: 10/16/2023 14:52 At the request of: ERIK GARAY Procedure: US OB cervical length EXAMINATION: US OB placenta, US OB cervical length HISTORY: LOW LYING PLACENTA COMPARISON: Ultrasound OB placenta 09/30/2023 FINDINGS: PLACENTA: Posterior with lower margin approximately 9 cm from internal os. No abruption or subchorionic hematoma. CERVIX LENGTH: 5.0 cm; closed. HEART RATE: 152 bpm OTHER: None. US/US OB cervical length IMPRESSION: 1. Posterior placenta which is no longer low-lying. Distal margin is difficult to determine due to position however, it appears to be approximately 9 cm from the internal os. Electronically authenticated by: NIMCO BELLE Date: 10/16/2023 14:52
--- NOTE | 2023-10-16 13:41 | US_ITS ---
[address] [address] Patient Name: PARMJIT CANCHOLA MRN: [facility]:[id number] date: 1990 Sex: F Assigned Patient Location: [facility] Current Patient Location: [facility] Accession/Order Number: [id number] Exam Date: 10/16/2023 13:41 Report Date: 10/16/2023 14:49 At the request of: ERIK GARAY Procedure: US OB growth EXAMINATION: US OB growth HISTORY: EXTREME NAUSEA AND WEIGHT LOSS COMPARISON: No relevant comparison available. FINDINGS: Heart Rate: 152 bpm Amniotic Fluid Volume: 10.7 cm; normal range Number: 1 Position: CEPHALIC BIOMETRY: BPD: 8.61 cm; 34 weeks 5 days; 12.60 % HC: 32.26 cm; 36 weeks 3 days; 17.80 % AC: 33.40 cm; 37 weeks 2 days; 78.20 % FL: 7.04 cm; 36 weeks 1 day; 31.50 % EFW: 2854.56 g; 51.90 % FL/AC: 21.08 FL/BPD: 81.77 HC/AC: 0.97 GESTATIONAL AGE: Age by EDC: 36 weeks 5 days TAMI by EDC: 2023-11-08 Age by US: 36 weeks 1 day TAMI by US: 2023-11-12 US/US OB growth IMPRESSION: 1. Single live intrauterine with growth detailed above. Electronically authenticated by: NIMCO BELLE Date: 10/16/2023 14:49
--- OUTSIDE RECORDS SUMMARY | 2023-10-16 14:00 | XMS_ITS | CCD ---
Author Organization [facility] Care Team Providers Care Monitoring And Evaluation Advisor Name Role Phone TANISHA, ERIK Unavailable Unavailable [...] TANISHA Payers Date Payer Category Payer Unknown [id number] 1990 Unknown [id number] 2.16.84 0.1.347259.3.579.2.1258 1992 Unknown [id number] 2.16.84 0.1.545569.3.579.2.1258 1992 Unknown [id number] 2.16.84 0.1.392296.3.579.2.1258 1992 Unknown [id number] 2.16.84 0.1.900002.3.579.2.1258 1992 Unknown [id number] 2.16.84 0.1.800991.3.579.2.1258 1992 Unknown [id number] 2.16.84 0.1.257640.3.579.2.1259 1992 Unknown [id number] 2.16.84 0.1.429011.3.579.2.1258 1992 Unknown [id number] 2.16.84 0.1.877625.3.579.2.9 1992 Unknown [id number] 2.16.84 0.1.766510.3.579.2.1258 1992 Unknown [id number] 2.16.84 0.1.556393.3.579.2.1259 1959 Unknown [id number] Summary Purpose Family History No Family History Records FoundNo Family History Records Found Advance Directives No Advanced Directives Records FoundNo Advanced Directives Records Found Additional Source Comments INFORMATION SOURCE (unrecogn ized section and content) DATE CREATED AUTHOR 08/21/2017 [facility] DATE CREATED AUTHOR AUTHOR'S JENNY MCFARLANE 10/09/2023 [facility] Specialists [facility] FOR RECORDS PERTAINING TO PATIENTS WHO [...] BE BASED ON THE PRIMARY CLINICAL RECORDS. [facility] [employer] provides no warranty or guarantee of the accuracy or completeness of information in this document.
== END 2023-10-16 13:40 | disposition home or self-care (01) ==
LOC: NOMS 13:39
PROVIDERS: Visit Provider Obstetrics & Gynecology
DX: O44.43 Low lying placenta NOS or without hemorrhage, third trimester (principal); O26.893 Other specified pregnancy related conditions, third trimester; R11.0 Nausea; R63.4 Abnormal weight loss; Z3A.36 36 weeks gestation of pregnancy
CPT/HCPCS: 76815; 76816; 76817

== ENCOUNTER 2023-10-19 06:38 | Outpatient (OUT) | payer OTHER, SELFPAY ==
--- OUTSIDE RECORDS SUMMARY | 2023-10-19 06:41 | XMS_ITS | CCD ---
Author Organization [facility] Care Team Providers Care Cryptologist Name Role Phone TANISHA, ERIK Unavailable Unavailable TANISHA, ERIK Unavailable Unavailable JENNA ANDERSON Unavailable Unavailable CLAYTON DAVID V Unavailable Unavailable SUSY, JAMIE Unavailable Unavailable TANISHA, ERIK Unavailable Unavailable SUSY, JAMIE Unavailable Unavailable TANISHA, ERIK Attending Unavailable [...] Date Encounter Type Care Provider Facility Start: 10-15-2023 End: 10-15-2023 ambulatory ERIK TANISHA Not Available Start: 10-08-2023 End: 10-08-2023 ambulatory ERIK TANISHA [...] TANISHA Payers Date Payer Category Payer Unknown [id number] 1990 Unknown [id number] 2.16.84 0.1.598389.3.579.2.1258 1992 Unknown [id number] 2.16.84 0.1.310842.3.579.2.1258 1992 Unknown [id number] 2.16.84 0.1.258692.3.579.2.1258 1992 Unknown [id number] 2.16.84 0.1.999275.3.579.2.1258 1992 Unknown [id number] 2.16.84 0.1.615067.3.579.2.9 1992 Unknown [id number] 2.16.84 0.1.831077.3.579.2.1258 1992 Unknown [id number] 2.16.84 0.1.903020.3.579.2.1258 1992 Unknown [id number] 2.16.84 0.1.613079.3.579.2.1258 1992 Unknown [id number] 2.16.84 0.1.778890.3.579.2.1258 1992 Unknown [id number] 2.16.84 0.1.313809.3.579.2.1258 1992 Unknown [id number] 2.16.84 0.1.919089.3.579.2.1258 1959 Unknown [id number] Summary Purpose Family History No Family History Records FoundNo Family History Records Found Advance Directives No Advanced Directives Records FoundNo Advanced Directives Records Found Additional Source Comments INFORMATION SOURCE (unrecogn ized section and content) DATE CREATED AUTHOR 08/21/2017 [facility] DATE CREATED AUTHOR AUTHOR'S JENNY MCFARLANE 10/16/2023 [facility] dical Specialists [employer] FOR RECORDS PERTAINING [...] BE BASED ON THE PRIMARY CLINICAL RECORDS. [facility] [employer] provides no warranty or guarantee of the accuracy or completeness of information in this document.
[2023-10-19 08:21] VITALS: BP 120/66; PULSE 111; TEMP 35.9
== END 2023-10-19 08:57 | disposition home or self-care (01) ==
LOC: FBCO 06:38 → FBC 08:13
PROVIDERS: Visit Provider Obstetrics & Gynecology
DX: O99.283 Endocrine, nutritional and metabolic diseases complicating pregnancy, third trimester (principal)
CPT/HCPCS: 59025

== ENCOUNTER 2023-10-23 07:00 | Outpatient (OUT) | payer OTHER, SELFPAY ==
--- OUTSIDE RECORDS SUMMARY | 2023-10-23 07:03 | XMS_ITS | CCD ---
Author Organization [facility] Care Team Providers Care Welfare Eligibility Worker Name Role Phone TANISHA, ERIK Unavailable Unavailable [...] TANISHA Payers Date Payer Category Payer Unknown [id number] 1990 Unknown [id number] 2.16.84 0.1.717619.3.579.2.1258 1992 Unknown [id number] 2.16.84 0.1.362979.3.579.2.1258 1992 Unknown [id number] 2.16.84 0.1.962931.3.579.2.1258 1992 Unknown [id number] 2.16.84 0.1.493689.3.579.2.1258 1992 Unknown [id number] 2.16.84 0.1.058617.3.579.2.9 1992 Unknown [id number] 2.16.84 0.1.351578.3.579.2.1258 1992 Unknown [id number] 2.16.84 0.1.018583.3.579.2.1258 1992 Unknown [id number] 2.16.84 0.1.753316.3.579.2.1258 1992 Unknown [id number] 2.16.84 0.1.198960.3.579.2.1258 1992 Unknown [id number] 2.16.84 0.1.092241.3.579.2.1258 1992 Unknown [id number] 2.16.84 0.1.113477.3.579.2.1258 1959 Unknown [id number] Summary Purpose Family History No Family History Records FoundNo Family History Records Found Advance Directives No Advanced Directives Records FoundNo Advanced Directives Records Found Additional Source Comments INFORMATION SOURCE (unrecogn ized section and content) DATE CREATED AUTHOR 08/21/2017 [facility] DATE CREATED AUTHOR AUTHOR'S JENNY MCFARALNE 10/16/2023 [facility] dical Specialists EPIC FOR RECORDS PERTAINING [...] BASED ON THE PRIMARY CLINICAL RECORDS. [facility] [employer] provides no warranty or guarantee of the accuracy or completeness of information in this document.
--- NOTE | 2023-10-23 15:18 | US_ITS ---
[address] [address] Patient Name: PARMJIT CANCHOLA MRN: [facility]:[id number] date: 1990 Sex: F Assigned Patient Location: [facility] Current Patient Location: [facility] Accession/Order Number: [id number] Exam Date: 10/23/2023 15:24 Report Date: 10/23/2023 15:53 At the request of: ERIK GARAY Procedure: US OB BPP w non-stress EXAMINATION: US OB BPP w non-stress HISTORY: NAUSEA R11.0 COMPARISON: No relevant comparison available. TECHNIQUE: Ultrasound biophysical profile was performed in the radiology department. non-reactive stress testing was performed by nursing staff in the birthing center. FINDINGS: BREATHING MOVEMENTS: 2 GROSS BODY MOVEMENTS: 2 TONE: 2 QUALITATIVE AMNIOTIC FLUID VOLUME: 2 PRESENTATION: CEPHALIC HEART RATE: 153.41 bpm AMNIOTIC FLUID VOLUME: 11.6 cm GESTATIONAL AGE: 37 weeks 5 days US/US OB BPP w non-stress IMPRESSION: Total biophysical profile score: 8 Electronically authenticated by: CLAYTON DAVID Date: 10/23/2023 15:53
[2023-10-23 15:45] VITALS: BP 103/67; PULSE 82
== END 2023-10-23 16:10 | disposition home or self-care (01) ==
LOC: US 07:00 → FBC 15:17
PROVIDERS: Visit Provider Obstetrics & Gynecology
DX: R11.0 Nausea (principal); Z3A.37 37 weeks gestation of pregnancy
CPT/HCPCS: 76818

== ENCOUNTER 2023-10-26 06:36 | Outpatient (OUT) | payer OTHER, SELFPAY ==
--- OUTSIDE RECORDS SUMMARY | 2023-10-26 06:39 | XMS_ITS | CCD ---
Author Organization [facility] Care Team Providers Care Toy Trains And Accessories Salesperson Name Role Phone TANISHA, ERIK Unavailable Unavailable [...] ERIK Attending Unavailable MICHELLE, ISRAEL Attending Unavailable Problems Active Problems Problem Classification [...] Date Encounter Type Care Provider Facility Start: 10-23-2023 End: 10-23-2023 ambulatory ISRAEL MARTINEZ Not Available Start: 10-15-2023 End: 10-15-2023 ambulatory ERIK TANISHA [...] TANISHA Payers Date Payer Category Payer Unknown [id number] 1990 Unknown [id number] 2.16.84 0.1.293175.3.579.2.1258 1992 Unknown [id number] 2.16.84 0.1.311398.3.579.2.9 1992 Unknown [id number] 2.16.84 0.1.644748.3.579.2.9 1992 Unknown [id number] 2.16.84 0.1.339220.3.579.2.9 1992 Unknown [id number] 2.16.84 0.1.644784.3.579.2.1258 1992 Unknown [id number] 2.16.84 0.1.247211.3.579.2.1258 1992 Unknown [id number] 2.16.84 0.1.323720.3.579.2.1258 1992 Unknown [id number] 2.16.84 0.1.314201.3.579.2.1258 1992 Unknown [id number] 2.16.84 0.1.131243.3.579.2.1258 1992 Unknown [id number] 2.16.84 0.1.370851.3.579.2.1258 1992 Unknown [id number] 2.16.84 0.1.652566.3.579.2.1258 1992 Unknown [id number] 2.16.84 0.1.162770.3.579.2.9 1959 Unknown [id number] Summary Purpose Family History No Family History Records FoundNo Family History Records Found Advance Directives No Advanced Directives Records FoundNo Advanced Directives Records Found Additional Source Comments INFORMATION SOURCE (unrecogn ized section and content) DATE CREATED AUTHOR 08/21/2017 [facility] DATE CREATED AUTHOR AUTHOR'S JENNY MCFARLANE 10/25/2023 [facility] FOR RECORDS PERTAINING TO PATIENTS [...] BE BASED ON THE PRIMARY CLINICAL RECORDS. [facility] [employer] provides no warranty or guarantee of the accuracy or completeness of information in this document.
[2023-10-26 08:16] VITALS: BP 103/59; PULSE 103
== END 2023-10-26 08:42 | disposition home or self-care (01) ==
LOC: FBCO 06:37 → FBC 08:08
PROVIDERS: Visit Provider Obstetrics & Gynecology
DX: O99.283 Endocrine, nutritional and metabolic diseases complicating pregnancy, third trimester (principal)
CPT/HCPCS: 59025

== ENCOUNTER 2023-10-30 07:07 | Outpatient (OUT) | payer OTHER, SELFPAY ==
--- OUTSIDE RECORDS SUMMARY | 2023-10-30 07:09 | XMS_ITS | CCD ---
Author Organization [facility] Care Team Providers Care Benefits Director Name Role Phone TANISHA, ERIK Unavailable Unavailable [...] Available Start: 07-24-2023 End: 07-24-2023 ambulatory ERIK TNAISHA Not Available Start: 06-26-2023 End: 06-26-2023 ambulatory [...] TANISHA Payers Date Payer Category Payer Unknown [id number] 1990 Unknown [id number] 2.16.84 0.1.332845.3.579.2.1258 1992 Unknown [id number] 2.16.84 0.1.238428.3.579.2.9 1992 Unknown [id number] 2.16.84 0.1.164291.3.579.2.9 1992 Unknown [id number] 2.16.84 0.1.855921.3.579.2.9 1992 Unknown [id number] 2.16.84 0.1.163540.3.579.2.1258 1992 Unknown [id number] 2.16.84 0.1.604401.3.579.2.1258 1992 Unknown [id number] 2.16.84 0.1.806548.3.579.2.1258 1992 Unknown [id number] 2.16.84 0.1.404514.3.579.2.1258 1992 Unknown [id number] 2.16.84 0.1.483066.3.579.2.1258 1992 Unknown [id number] 2.16.84 0.1.183272.3.579.2.1258 1992 Unknown [id number] 2.16.84 0.1.331381.3.579.2.1258 1992 Unknown [id number] 2.16.84 0.1.639326.3.579.2.9 1959 Unknown [id number] Summary Purpose Family History No Family History Records FoundNo Family History Records Found Advance Directives No Advanced Directives Records FoundNo Advanced Directives Records Found Additional Source Comments INFORMATION SOURCE (unrecogn ized section and content) DATE CREATED AUTHOR 08/21/2017 [facility] DATE CREATED AUTHOR AUTHOR'S JENNY MCFARLANE 10/25/2023 [facility] Specialists [facility] FOR RECORDS PERTAINING TO [...] ON THE PRIMARY CLINICAL RECORDS. [facility] [employer] provides no warranty or guarantee of the accuracy or completeness of information in this document.
--- NOTE | 2023-10-30 15:07 | US_ITS ---
[address] [address] Patient Name: PARMJIT CANCHOLA MRN: [facility]:[id number] date: 1990 Sex: F Assigned Patient Location: [facility] Current Patient Location: [facility] Accession/Order Number: [id number] Exam Date: 10/30/2023 15:15 Report Date: 10/31/2023 06:49 At the request of: ERIK GARAY Procedure: US OB BPP w non-stress EXAMINATION: US OB BPP w non-stress HISTORY:NAUSEA R11.0 COMPARISON: Ultrasound OB biophysical 10/23/2023 TECHNIQUE: Ultrasound biophysical profile was performed in the radiology department. BREATHING MOVEMENTS: 2 GROSS BODY MOVEMENTS: 2 TONE: 2 QUALITATIVE AMNIOTIC FLUID VOLUME: 2 PRESENTATION: CEPHALIC HEART RATE: 140 bpm AMNIOTIC FLUID VOLUME: 15.12 cm GESTATIONAL AGE: 38 weeks 5 days US/US OB BPP w non-stress IMPRESSION: Total biophysical profile score: 8 Electronically authenticated by: NIMCO BELLE Date: 10/31/2023 06:49
[2023-10-30 15:47] VITALS: BP 95/69; PULSE 83
--- NOTE | 2023-10-30 17:15 | PC.NURSE ---
Pt reports feeling cxt's. Pt states she had a membrane sweep in the office today and has been having cxt's since. Pt denies vaginal pressure. Pt request cervical exam. Pt states she was 2cm in office today. Cervix remains unchanged; pt request to return home. Pt given [facility] contact number to call with further questions and concerns.
== END 2023-10-30 17:07 | disposition home or self-care (01) ==
LOC: US 07:07 → FBC 15:05
PROVIDERS: Visit Provider Obstetrics & Gynecology
DX: R11.0 Nausea (principal); Z3A.38 38 weeks gestation of pregnancy
CPT/HCPCS: 76818

== ENCOUNTER 2023-11-01 05:17 | Inpatient (IN) | payer OTHER, SELFPAY ==
[2023-11-01] VITALS (25 sets, daily range): BP systolic 89–144; BP diastolic 50–78; PULSE 59–148; TEMP 36.5–36.6
--- OUTSIDE RECORDS SUMMARY | 2023-11-01 05:20 | XMS_ITS | CCD ---
Author Organization [facility] Care Team Providers Care Elder Counselor Name Role Phone TANISHA, ERIK Unavailable Unavailable [...] Date Encounter Type Care Provider Facility Start: 10-30-2023 End: 10-30-2023 ambulatory ERIK TANISHA Not Available Start: 10-23-2023 End: 10-23-2023 ambulatory ISRAEL MICHELLE Not Available Start: 10-15-2023 End: 10-15-2023 ambulatory ERIK TANISHA Not Available Start: 10-08-2023 End: 10-08-2023 ambulatory ERIK TANISHA Not Available Start: 10-02-2023 End: 10-02-2023 ambulatory ERIK TANISHA Not Available Start: 09-19-2023 End: 09-19-2023 ambulatory ISRAEL MICHELLE Not Available Start: 09-04-2023 End: 09-04-2023 ambulatory ERIK TANISHA Not Available Start: 08-21-2023 End: 08-21-2023 ambulatory ERIK TANISHA Not Available Start: 07-24-2023 End: 07-24-2023 ambulatory ERIK TANISHA Not Available Start: 06-26-2023 End: 06-26-2023 ambulatory ISRAEL MICHELLE Not Available Start: 05-28-2023 End: 05-28-2023 ambulatory [...] TANISHA Payers Date Payer Category Payer Unknown [id number] 1990 Unknown [id number] 2.16.84 0.1.417299.3.579.2.1259 1992 Unknown [id number] 2.16.84 0.1.011034.3.579.2.1259 1992 Unknown [id number] 2.16.84 0.1.941038.3.579.2.9 1992 Unknown [id number] 2.16.84 0.1.637749.3.579.2.1258 1992 Unknown [id number] 2.16.84 0.1.948633.3.579.2.1258 1992 Unknown [id number] 2.16.84 0.1.809496.3.579.2.1258 1992 Unknown [id number] 2.16.84 0.1.948176.3.579.2.1258 1992 Unknown [id number] 2.16.84 0.1.012061.3.579.2.1258 1992 Unknown [id number] 2.16.84 0.1.265003.3.579.2.1258 1992 Unknown [id number] 2.16.84 0.1.842570.3.579.2.1258 1992 Unknown [id number] 2.16.84 0.1.680140.3.579.2.1258 1992 Unknown [id number] 2.16.84 0.1.028024.3.579.2.1258 1992 Unknown [id number] 2.16.84 0.1.822729.3.579.2.9 1959 Unknown [id number] Summary Purpose Family History No Family History Records FoundNo Family History Records Found Advance Directives No Advanced Directives Records FoundNo Advanced Directives Records Found Additional Source Comments INFORMATION SOURCE (unrecogn ized section and content) DATE CREATED AUTHOR 08/21/2017 [facility] DATE CREATED AUTHOR AUTHOR'S JENNY MCFARLANE 11/01/2023 [facility] dical Specialists EPIC FOR RECORDS PERTAINING TO [...] BE BASED ON THE PRIMARY CLINICAL RECORDS. [facility] [employer] [facility]. provides no warranty or guarantee of the accuracy or completeness of information in this document.
[2023-11-01] MEDS: 0.9 % SODIUM CHLORIDE 1,000 ML 125 ML IV (05:45)
[2023-11-01] MEDS: OXYTOCIN/0.9 % SODIUM CHLORIDE 10 UNITS/500 ML PLAST..BAG 6 UNIT IV (06:25)
[2023-11-01 06:41] LABS: Hematocrit 33.8 % (36.0-48.0); Hemoglobin 10.7 g/dL (12.0-16.0); Mean Corpuscular HGB Conc 31.7 g/dL (29.9-35.2); Mean Corpuscular Hemoglobin 26.9 pg (26.7-34.0); Mean Corpuscular Volume 84.9 fL (81.0-99.0); Mean Platelet Volume 10.2 fL (9.5-13.5); Platelet Count 390 10^3/uL (150-450); Red Blood Count 3.98 10^6/uL (4.20-5.40); Red Cell Distribution Width 14.2 % (11.0-15.0); White Blood Count 8.3 10^3/uL (4.0-11.0)
[2023-11-01 07:09] LABS: Amphetamine Screen Urine NEGATIVE (NEGATIVE); Barbiturates Screen Urine NEGATIVE (NEGATIVE); Benzodiazepines Screen Urine NEGATIVE (NEGATIVE); Cannabinoid Screen Urine NEGATIVE (NEGATIVE); Cocaine Screen Urine NEGATIVE (NEGATIVE); Methadone Screen Urine NEGATIVE (NEGATIVE); Methamphetamines Screen Urine NEGATIVE (NEGATIVE); Opiate Screen Urine NEGATIVE (NEGATIVE); Oxycodone Screen Urine NEGATIVE (NEGATIVE); Phencyclidine Screen Urine NEGATIVE (NEGATIVE); Tricyclic Antidepressant Urine NEGATIVE (NEGATIVE)
[2023-11-01 07:10] LABS: Buprenorphine Screen Urine NEGATIVE (NEGATIVE)
[2023-11-01] MEDS: NALBUPHINE HCL 10 MG/ML AMPULE IV (09:32)
[2023-11-01] MEDS: OXYTOCIN/0.9 % SODIUM CHLORIDE 20 UNITS/1,000 ML PLAST..BAG 125 UNIT IV (12:05)
--- NOTE | 2023-11-01 12:13 | PM.OBPRCVD ---
Procedure Intrapartal events: None Induction method: per pitocin protocol Delivery augmentation: rupture of membranes and pitocin Delivery monitor: external FHT and external uterine Route of delivery: Episiotomy Description: none L&D Laceration Description: none Estimated blood loss (mL): 350 Anesthesia type: None Disposition: floor Delivery date: 11/01/23 Gender: male presentation: vertex Placental delivery description: Spontaneous cord description: 3 Vessels Labor State Duration Total Length of Latency: 4 hours and 26 minutes
[2023-11-01] MEDS: IBUPROFEN 600 MG TABLET PO ×2 (14:08→20:27)
[2023-11-01] MEDS: GLYCERIN/WITCH HAZEL PADS 1 PAD TOPICAL (14:08)
[2023-11-01] MEDS: BENZOCAINE/MENTHOL 85 GRAM SPRAY BOTTLE 1 APPLIC TOPICAL (14:08)
[2023-11-02 07:11] LABS: Basophils Percent Auto 0.3 % (0.2-2.0); Eosinophils Absolute Auto 0.1 10^3/uL (0.0-0.7); Eosinophils Percent Auto 1.1 % (0.9-7.0); Hematocrit 28.5 % (36.0-48.0); Hemoglobin 9.1 g/dL (12.0-16.0); Immature Granulocytes Abs Auto 0.05 10^3/uL (0.00-0.03); Immature Granulocytes Pct Auto 0.5 % (0.0-0.5); Lymphocytes Absolute Auto 2.4 10^3/uL (1.2-3.8); Lymphocytes Percent Auto 26.4 % (20.5-60.0); Mean Corpuscular HGB Conc 31.9 g/dL (29.9-35.2); Mean Corpuscular Hemoglobin 27.7 pg (26.7-34.0); Mean Corpuscular Volume 86.6 fL (81.0-99.0); Mean Platelet Volume 9.5 fL (9.5-13.5); Monocytes Absolute Auto 0.8 10^3/uL (0.3-0.8); Monocytes Percent Auto 8.3 % (1.7-12.0); Neutrophils Absolute Auto 5.9 10^3/uL (1.4-6.5); Neutrophils Percent Auto 63.4 % (43.0-75.0); Platelet Count 278 10^3/uL (150-450); Red Blood Count 3.29 10^6/uL (4.20-5.40); Red Cell Distribution Width 14.6 % (11.0-15.0); White Blood Count 9.2 10^3/uL (4.0-11.0)
[2023-11-02 09:03] VITALS: BP 116/68; PULSE 77; TEMP 36.2
[2023-11-02] MEDS: DOCUSATE SODIUM 100 MG CAPSULE PO (09:03)
[2023-11-02] MEDS: IBUPROFEN 600 MG TABLET PO ×2 (09:03→16:29)
--- NOTE | 2023-11-02 09:15 | PM.OBPN ---
OB - PN: Subj Subjective Patient comments: no complaints and pain well controlled [place] status: doing well Exam Constitutional Vital Signs, click to edit/add: Last Vital Signs Temp 97.7 F 11/01/23 23:14 Pulse 77 11/02/23 09:03 Resp 16 11/01/23 23:14 BP 116/68 11/02/23 09:03 O2 Del Method Room Air 11/01/23 23:14 Documenting provider has reviewed patient's vital signs: yes Common normals: no apparent distress Respiratory Common normals: normal respiratory effort and clear to auscultation bilaterally Cardio Common normals: regular rate and regular rhythm GI Common normals: Normal to inspection, nondistended, normoactive bowel sounds present Extremity Common normals: no calf tenderness Results Labs Labs: Short CBC 11/02/23 Range/Units 07:03 WBC 9.2 (4.0-11.0) 10^3/uL Hgb 9.1 L (12.0-16.0) g/dL Hct 28.5 L (36.0-48.0) % Plt Count 278 (150-450) 10^3/uL OB - PN: A/P Plan - Vaginal Delivery day: 1 Plan: routine care, discharge home and follow up 6 weeks Time Spent with Patient Time: Total time spent is greater than 50% in coordination of care (as documented) at patient's floor/unit and/or counseling patient: Total time spent with greater than 50% in coordination of care (as documented) at patient's floor/unit and/or counseling patient: less than 15 minutes
[2023-11-02] MEDS: MEASLES,MUMPS,RUBELLA VACC/PF 0.5 ML VIAL SQ (16:30)
[2023-11-02 16:35] VITALS: BP 102/70; PULSE 91; TEMP 36.3
== END 2023-11-02 16:50 | disposition home or self-care (01) | DRG 807 ==
PROVIDERS: Admitting Provider Obstetrics & Gynecology; Visit Provider Obstetrics & Gynecology
DX: O80 Encounter for full-term uncomplicated delivery (principal); Z37.0 Single live birth; Z3A.39 39 weeks gestation of pregnancy
CPT/HCPCS: 36415; 59050; 59410; 80307; 85025; 85027; 86850; 86900; 86901; 90471; 90707; 96374; 96375; 96376; J2300

== ENCOUNTER 2023-12-10 10:56 | Outpatient (OUT) | payer OTHER, SELFPAY ==
--- OUTSIDE RECORDS SUMMARY | 2023-12-10 11:16 | XMS_ITS | CCD ---
Author Organization [facility] Care Team Providers Care Quality Control Director Name Role Phone TANISHA, ERIK Unavailable [...] Date Encounter Type Care Provider Facility Start: 11-25-2023 End: 11-25-2023 ambulatory ERIK TANISHA Not Available Start: 10-30-2023 End: 10-30-2023 ambulatory ERIK TANISHA [...] TANISHA Payers Date Payer Category Payer Unknown [id number] 1990 Unknown [id number] 2.16.84 0.1.537195.3.579.2.1259 1992 Unknown [id number] 2.16.84 0.1.967444.3.579.2.1258 1992 Unknown [id number] 2.16.84 0.1.807506.3.579.2.1258 1992 Unknown [id number] 2.16.84 0.1.629839.3.579.2.1258 1992 Unknown [id number] 2.16.84 0.1.685585.3.579.2.1258 1992 Unknown [id number] 2.16.84 0.1.120278.3.579.2.1258 1992 Unknown [id number] 2.16.84 0.1.830704.3.579.2.1258 1992 Unknown [id number] 2.16.84 0.1.093787.3.579.2.1258 1992 Unknown [id number] 2.16.84 0.1.402264.3.579.2.1258 1992 Unknown [id number] 2.16.84 0.1.706638.3.579.2.1258 1992 Unknown [id number] 2.16.84 0.1.247978.3.579.2.1258 1992 Unknown [id number] 2.16.84 0.1.867754.3.579.2.1258 1992 Unknown [id number] 2.16.84 0.1.828130.3.579.2.1258 1992 Unknown [id number] 2.16.84 0.1.646763.3.579.2.1258 1959 Unknown [id number] Summary Purpose Family History No Family History Records FoundNo Family History Records Found Advance Directives No Advanced Directives Records FoundNo Advanced Directives Records Found Additional Source Comments INFORMATION SOURCE (unrecogn ized section and content) DATE CREATED AUTHOR 08/21/2017 [facility] DATE CREATED AUTHOR VANNESA MCFARLANE 11/25/[address] [facility] dical Specialists EPIC FOR RECORDS PERTAINING [...] BE BASED ON THE PRIMARY CLINICAL RECORDS. [facility] [employer] [facility]. provides no warranty or guarantee of the accuracy or completeness of information in this document.
== END 2023-12-10 10:57 | disposition home or self-care (01) ==
LOC: PST 10:56
PROVIDERS: Visit Provider Obstetrics & Gynecology
DX: Z01.818 Encounter for other preprocedural examination (principal); Z30.2 Encounter for sterilization

== ENCOUNTER 2023-12-20 06:33 | Day surgery (SDC) | payer OTHER, SELFPAY ==
[2023-12-10 11:29] VITALS: BP 123/80; PULSE 54; TEMP 36.2; O2SAT 99; BMI 36.3
[2023-12-20] VITALS (10 sets, daily range): BP systolic 104–124; BP diastolic 63–102; PULSE 49–84; TEMP 36–36.1; O2SAT 64–98; BMI 36.6
--- OUTSIDE RECORDS SUMMARY | 2023-12-20 06:35 | XMS_ITS | CCD ---
Author Organization [facility] Care Team Providers Care Alterations Tailor Name Role Phone TANISHA, ERIK Unavailable Unavailable TANISHA, ERIK Unavailable Unavailable JENNA ANDERSON Unavailable Unavailable CLAYTON DAVID V Unavailable Unavailable SUSY, JAMIE Unavailable Unavailable TANISHA, ERIK Unavailable Unavailable SUSY, JAMIE Unavailable Unavailable Mary Jones MD Primary Care Provider TANISHA, ERIK Attending Unavailable TANISHA, ERIK Attending Unavailable MICHELLE, MARISA Attending Unavailable TANISHA, ERIK Attending Unavailable TANISHA, ERIK Attending Unavailable TANISHA, ERIK Attending Unavailable MICHELLE, MARISA Attending Unavailable TANISHA, ERIK Attending Unavailable TANISHA, ERIK Attending Unavailable TANISHA, ERIK Attending Unavailable MICHELLE, MARISA Attending Unavailable TANISHA, ERIK Attending Unavailable TANISHA, ERIK Attending Unavailable MICHELLE, MARISA Attending Unavailable Medications Current Medications Medication Drug Class(es) Dates Sig (Normalized) Sig (Original) [id number] 200 actuat albuterol 0.09 mg/actuat metered dose inhaler (2 sources) beta2-Adrenergic Agonist take 2 puff(s) by mouth every four hours albuterol HFA 90 mcg/act inhaler Take 2 puffs by mouth every 4 (four) hours if needed Active Problems Active Problems Problem Classification Problem Date Documented Date Episodic/Chronic Contraceptive and procreative management (2 sources) Sterilization requested; Translations: [Encounter for sterilization] Onset: 11-25-2023 11-25-2023 Episodic Normal and/or delivery (7 sources) Encounter for supervision of other normal , third trimester; Translations: [Single live ] Onset: 08-14-2016 12-11-2023 Episodic Other complications of ; puerperium affecting management of mother (1 source) Anemia complicating childbirth; Translations: [ANEMIA COMPLICATING CHILDBIRTH] Onset: 09-03-2016 Chronic Unclassified (1 source) 39 weeks gestation of ; Translations: [39 WEEKS GESTATION OF ] Onset: 09-03-2016 Past or Other Problems Problem Classification Problem Date Documented Da te Episodic/Chronic Nausea and vomiting (2 sources) Nausea and vomiting; Translations: [Nausea with vomiting, unspecified] Onset: 05-06-2023 Resolved: 10-02-2023 10-02-2023 Episodic Other complications of (1 source) Mild [...] W/I 24 HR RUPT] Onset: 09-03-2016 Episodic Vital Signs Date Time Vital Sign Value Performing Clinician Faci lity 12-11-2023 10:43-0400 Body mass index (BMI) [Ratio] 35.13 kg/m2 Marisa RUSHING Work Phone: [facility] 12-11-2023 10:43-0400 Body weight 95.76 kg Marisa RUSHING Work Phone: [facility] 12-11-2023 10:43-0400 Diastolic blood pressure 74 mm[Hg] Marisa RUSHING Work Phone: [facility] 12-11-2023 10:43-0400 Systolic blood pressure 110 mm[Hg] Marisa RUSHING Work Phone: [facility] Encounters Encounter Date Encounter Type Care Provider Facility Start: 12-11-2023 End: 12-11-2023 ambulatory Marisa RUSHING Work Phone: [facility] Start: 12-11-2023 End: 12-11-2023 Follow-up encounter Marisa RUSHING Work Phone: [facility] Comment on above: 6 weeks f ollow-up Start: 11-25-2023 Preprocedural examin ation done Marisa RUSHING Work Phone: [facility] Start: 11-25-2023 End: 11-25-2023 ambulatory ERIK TANISHA Not Available Start: 10-30-2023 End: 10-30-2023 ambulatory ERIK TANISHA Not Available Start: 10-23-2023 End: 10-23-2023 ambulatory MARISA MARTINEZ Not Available Start: 10-15-2023 End: 10-15-2023 ambulatory ERIK TANISHA Not Available Start: 10-08-2023 End: 10-08-2023 ambulatory ERIK TANISHA Not Available Start: 10-02-2023 End: 10-02-2023 ambulatory ERIK TANISHA Not Available Start: 09-19-2023 End: 09-19-2023 ambulatory MARISA MARTINEZ Not Available Start: 09-04-2023 End: 09-04-2023 ambulatory ERIK TANISHA Not Available Start: 08-21-2023 End: 08-21-2023 ambulatory ERIK TANISHA Not Available Start: 07-24-2023 End: 07-24-2023 ambulatory ERIK TANISHA Not Available Start: 06-26-2023 End: 06-26-2023 ambulatory MARISA MICHELLE Not Available Start: 05-28-2023 End: 05-28-2023 ambulatory ERIK TANISHA Not Available Start: 05-06-2023 End: 05-06-2023 ambulatory ERIK TANISHA Not Available Start: 04-19-2023 End: 04-19-2023 ambulatory ERIK TANISHA Not Available Start: 08-14-2016 End: 08-17-2016 Evaluation and management of inpatient ERIK TANISHA Facility:[facility] Procedures Date Procedure Procedure Detail Performing Clinician Start: 05-28-2023 Microscopic observat ion [Identifier] in Cervix by Cyto stain Marisa RUSHING Work Phone: Start: 08-15-2016 Delivery of Products of Conception, External Approach ERIK TANISHA Start: 08-15-2016 Introduction of Othe r Therapeutic Substance into Female Reproductive, Via Natural or Artificial Opening ERIK TANISHA Plan of Treatment Date Care Activity Detail Author Start: 05-27-2028 Screening for malign ant neoplasm of cervix [facility] Start: 12-20-2023 End: 12-20-2023 Patient encounter procedure 12/20/2023 8:00 AM EDT Procedure Visit [facility] Erik Espinoza, [address] [place] [address] [facility] Start: 10-27-2023 Influenza vaccination Influenza Vacc ine (#1) [facility] Payers Date Payer Category Payer Private Health Insurance [employer] [id number] 2023 Unknown [id number] 1992 Unknown [id number] [id number] .2.1258 1992 Unknown [id number] 2.16.840.1.434671.3.579 .2.1258 1992 Unknown [id number] 2.16.840.1.662204.3.579 .2.1258 1992 Unknown [id number] 2.16.840.1.337636.3.579 .2.1258 1992 Unknown [id number] 2.16.840.1.708773.3.579 .2.1258 1992 Unknown [id number] 2.16.840.1.336260.3.579 .2.1258 1992 Unknown [id number] 2.16.840.1.187016.3.579 .2.1258 1992 Unknown [id number] 2.16.840.1.291907.3.579 .2.9 1992 Unknown [id number] 2.16.840.1.822729.3.579 .2.9 1992 Unknown [id number] 2.16.840.1.628161.3.579 .2.9 1992 Unknown [id number] 2.16.840.1.505890.3.579 .2.1258 1992 Unknown [id number] 2.16.840.1.559593.3.579 .2.9 1992 Unknown [id number] 2.16.840.1.334244.3.579 .2.9 1992 Unknown [id number] 2.16.840.1.360813.3.579 .2.9 1992 Unknown [id number] 2.16.840.1.706866.3.579 .2.9 1959 Unknown [id number] Social History Date Type Detail Facility Tobacco smoking stat [facility] Tobacco smoking consumption unknown [facility] Start: 1990 Sex assigned at Female [facility] Start: 04-03-2023 Gender identity Identifies as female gender (finding) [facility] Start: 04-03-2023 Sexual orientation Heterosexual (fin ding) [facility] History of Present illness Narrative 12-11-2023 KRISTAN Valentino - 12/11/2023 10:30 AM EDT Note Date & Type Note Facility 12-11-2023 History of Presen t illness Narrative Reason for Appointment: Patient ID: Marilee Canchola is a 33 y.o. female who presents for Care Patient presents today for Post Follow Up appointment. MEDICATIONS Current Outpatient Medications Medication Instructions albuterol HFA 90 mcg/act inhaler 2 puffs, Oral, Every 4 hours PRN ALLERGIES No Known Allergies PROBLEMS Active Ambulatory Problems Diagnosis Date Noted Request for sterilization 11/25/2023 state 11/25/2023 Pre-op examination 11/25/2023 Resolved Ambulatory Problems Diagnosis Date Noted Severe nausea and vomiting 05/06/2023 No Additional Past Medical History HISTORY PAST MEDICAL HISTORY SOCIAL HISTORY History reviewed. No pertinent past medical history. Social History Tobacco Use Smoking status: Not on file Smokeless tobacco: Not on file Substance Use Topics Alcohol use: Not on file Drug use: Not on file FAMILY HISTORY No family history on file. SURGICAL HISTORY History reviewed. No pertinent surgical history. REVIEW OF SYSTEMS Review of Systems: Review of Systems Constitutional: Negative. HENT: Negative. Eyes: Negative. Respiratory: Negative. Cardiovascular: Negative. Gastrointestinal: Negative. Genitourinary: Negative. Musculoskeletal: Negative. Skin: Negative. Neurological: Negative. All other systems reviewed and are negative. Hematological: Negative. Endocrine: Negative. Allergic/Immunologic: Negative. OBJECTIVE Objective: Physical Exam Constitutional: Appearance: Normal appearance. She is normal weight. HENT: Head: Normocephalic. Cardiovascular: Rate and Rhythm: Normal rate. Pulses: Normal pulses. Pulmonary: Effort: Pulmonary effort is normal. Breath sounds: Normal breath sounds. Abdominal: Palpations: Abdomen is soft. Musculoskeletal: General: Normal range of motion. Neurological: General: No focal deficit present. Mental Status: She is alert and oriented to person, place, and time. Psychiatric: Mood and Affect: Mood normal. Behavior: Behavior normal. Thought Content: Thought content normal. Judgment: Judgment normal. Vitals and nursing note reviewed. Vitals: Estimated body mass index is 35.13 kg/m as calculated from the following: Height as of 11/25/23: 5' 5 . Weight as of this encounter: 211 lb 1.9 oz. BP: 110/74 No LMP recorded. ASSESSMENT & PLAN ICD-10-CM 1. 6 weeks follow-up Z39.2 Post Follow Up: Patient is doing well but has complaints of vaginal. Patient presents today for 6 week visit. Patient is s/p Vaginal delivery. Patient states depression but denies suicidal and homicidal ideations. All options were discussed with the patient regarding control and patient desires salpingectomy scheduled next month. Follow Up: Patient is to return for post op salpingectomy Documented by KRISTAN Valentino on behalf of: KRISTAN Valentino documented in this encounter [facility] Evaluation note Note Date & Type Note Facility Evaluation note Diagnosis 6 weeks follow-up documented in this encounter [facility] Summary Purpose Family History No Family History Records FoundNo Family History Records Found Advance Directives No Advanced Directives Records FoundNo Advanced Directives Records Found Additional Source Comments INFORMATION SOURCE (unrecogn ized section and content) DATE CREATED AUTHOR 08/21/2017 [facility] DATE CREATED AUTHOR AUTHOR'S ORGANLAMONT ATFARIDA 12/13/2023 [facility] Reason for Visit (unrecogniz ed section and content) Reason Comments Care Care Teams (unrecognized sec tion and content) Alterations Tailor Relationship Specialty Start Date End Date Mary Jones MD [address] [place] [address] PCP - General Internal Medicine 04/19/23 FOR RECORDS PERTAINING TO PATIENTS WHO ARE [...] BE BASED ON THE PRIMARY CLINICAL RECORDS. [employer] provides no warranty or guarantee of the accuracy or completeness of information in this document.
[2023-12-20 06:47] LABS: Basophils Percent Auto 0.3 % (0.2-2.0); Eosinophils Absolute Auto 0.1 10^3/uL (0.0-0.7); Hematocrit 37.4 % (36.0-48.0); Hemoglobin 11.8 g/dL (12.0-16.0); Immature Granulocytes Abs Auto 0.01 10^3/uL (0.00-0.03); Immature Granulocytes Pct Auto 0.2 % (0.0-0.5); Lymphocytes Absolute Auto 2.1 10^3/uL (1.2-3.8); Lymphocytes Percent Auto 34.9 % (20.5-60.0); Mean Corpuscular HGB Conc 31.6 g/dL (29.9-35.2); Mean Corpuscular Hemoglobin 26.8 pg (26.7-34.0); Mean Platelet Volume 9.1 fL (9.5-13.5); Monocytes Absolute Auto 0.5 10^3/uL (0.3-0.8); Neutrophils Absolute Auto 3.3 10^3/uL (1.4-6.5); Neutrophils Percent Auto 54.6 % (43.0-75.0); Platelet Count 377 10^3/uL (150-450); Red Cell Distribution Width 16.3 % (11.0-15.0); White Blood Count 6.1 10^3/uL (4.0-11.0)
[2023-12-20 07:09] LABS: HCG Quantitative <1 mIU/mL
[2023-12-20] MEDS: LACTATED RINGER'S SOLUTION 1,000 ML 50 ML IV (07:22)
[2023-12-20] MEDS: LACTATED RINGER'S SOLUTION 1,000 ML 125 ML IV (08:20)
--- NOTE | 2023-12-20 08:56 | PM.ONB ---
Brief Operative Note Date of procedure: 12/20/23 Pre-op diagnosis general: desires permanent sterilization, multiparity Post-op diagnosis: same as pre-op Procedure: NAME OF PROCEDURE: robotic assisted bilateral laparoscopic salpingectomy PROCEDURE: The patient was taken back to the Operating Room where she was given general anesthesia without difficulty. She was then prepped and draped in the normal sterile fashion after being placed in a dorsal lithotomy position. A wet sponge stick was placed into the patient's vagina. Attention was then turned to the patient's abdomen, where a scalpel was used to make a small infraumbilical incision. The S retractors were then used to dissect the underlying layers until the fascia could be seen. The fascia was then grasped with Becka clamps and tented up. A knife was then used to make a small incision to the fascia. The muscle was identified, at that time two sutures of #0 Vicryl on a GI needle was then used and placed through the fascia. the peritoneum was then identified and entered bluntly. The 10-4 Cristin was then placed into the patient's abdomen. This was confirmed with direct visualization of the bowel, using the laparoscope. The patient's abdomen was then insufflated using approximately 4 liters of CO2 gas. Survey of the patient's abdomen demonstrated ovaries were normal in appearance as well as both tubes and uterus. A second and third rt and lt lateral robotic ports which were 8 mm in size, was then placed after the skin incision was made under direct visualization . the robotic arms were engaged. The patient's tube on the patient's right side was identified and tented up using a grasper, the ligasure apparatus was then used to come across the mesosalpingx from the fimbriated end to the insertion site at the uterus, the tube was then amputated and removed in its entirety. This was done on the contralateral side. The tubes were the removed from the patients abdomen. Excellent hemostasis was noted. The lateral ports were then moved under direct visualization with excellent hemostasis. All instruments were removed from the patient's abdomen. The fascia was closed using the #0 Vicryl on GI needle. The skin was closed using 4-0 Vicryl subcuticularly. All instruments were removed from the patient's vagina as well. The patient was taken out of the dorsal lithotomy position and placed in the supine position and taken to recovery in stable condition. Sponge, lap and needle counts were correct x2. Anesthesia: JANETTA Surgeon: Luis Daniel Espinoza [employer] Assembler: Morelia Martinez Estimated blood loss (mL): 5 Pathology: other (tubes) Condition: stable Disposition: PACU Urinary Catheter Management Urinary Catheter Management Urethral: Cath placed during this visit: no
== END 2023-12-20 10:45 | disposition home or self-care (01) ==
PROVIDERS: Visit Provider Obstetrics & Gynecology
PROC: (CPT 840; principal; 2023-12-20 07:30)
DX: Z30.2 Encounter for sterilization (principal); N83.8 Other noninflammatory disorders of ovary, fallopian tube and broad ligament; Z86.16 Personal history of COVID-19
CPT/HCPCS: 58661; 36415; 84702; 85025; 88302; J1100; J1171; J1885; J2250; J2371; J2405; J2704; J3010